=== PATIENT | female | born 1965 | race Caucasian/White ===

== ENCOUNTER 2016-04-03 09:53 | Emergency (ER) | payer BC, OTHER ==
[~2016-04-03] VITALS: Ht 152.4 cm; Wt 54.8 kg
[~2016-04-03 09:53] MED LIST: NAPR1TAB9 PO
[2016-04-03 10:03] VITALS: TEMP 36.7; Ht 152.4 cm; Wt 54.8 kg
[2016-04-03] MEDS ORDERED: DIPHTHERIA/TETANUS/PERTUSSIS 0.5 ML SYR/VIAL IM. ONE (10:30)
[2016-04-03] MEDS ORDERED: RABIES IMMUNE GLOBULIN (HUMAN) 150 INTER.UNIT/ML 2 ML VIAL IM. ONE (11:00)
[2016-04-03] MEDS ORDERED: RABIES VACCINE (IMOVAX) HUMAN DIPL CELL 2.5 INTER.UNIT/ML SYR IM. ONE (11:00)
[2016-04-03] MEDS ORDERED: CLIN300C10 PO (11:02)
[2016-04-03] MEDS ORDERED: DOXY100C PO (11:02)
--- NOTE | 2016-04-03 11:04 | EMERGENCY ROOM VISIT NOTE ---
ED Visit Note First contact with patient: 10:09 CHIEF COMPLAINT: Animal bite HISTORY OF PRESENT ILLNESS: This 50-year-old female patient presents to the emergency department ambulatory after they sustained cat bites to the bilateral lower legs. The patient states she was attempting to catch a feral cat and the cat bit both of her lower legs. The patient complains of dull 1/10 pain at the site of the injury. Pain is worse with movement. Tetanus status is not up to date. REVIEW OF SYSTEMS: A 6 system review of systems was completed with positives and pertinent negatives listed in the HPI. ALLERGIES: Adhesives, penicillins MEDICATIONS: Aleve PMH: No significant past medical history. SOCIAL HISTORY: The patient lives locally with family. PHYSICAL EXAM: Vital Signs reviewed, see Nurse's notes, vital signs stable. GENERAL: This is a 50-year-old female, awake, alert, well appearing, no acute distress. Non toxic in appearance. MUSCULOSKELETAL: There are multiple puncture wounds of bilateral lower extremities. The largest is approximately 1.5 cm on the lateral left lower leg. There is no significant swelling, drainage or active bleeding. No joint space, tendon, or vascular involvement. Distal pulses intact. SKIN: No signs of infection. NEURO: No sensory or motor deficits noted over all dermatomes and myotomes tested. EMERGENCY DEPARTMENT COURSE AND DECISION MAKING: I examined the patient. The Department of Health paperwork was completed. The patient was given an Adacel booster. I did suggest possibly suturing one of the puncture wounds, but she adamantly declined this. I discussed the options of starting the rabies vaccinations versus waiting to see if the patient was able to capture the cat. She initially wanted to wait and attempt to capture the cat, but she later decided that she would rather start the rabies vaccinations today. She was given Imovax 2.5 units intramuscularly and Imogam at a dose of 20 mg/kg. The wounds were cleansed with Betadine and sterile saline and dressed with bacitracin and nonadherent dressings. The patient has a penicillin allergy and will be placed on doxycycline and clindamycin. She was instructed to follow-up with her primary care provider for further evaluation and return if needed for any worsening symptoms. She verbalized understanding of my assessment and treatment plan and was discharged home in good condition. DIAGNOSIS: Cat bite Problem List Surgical Problems: (1) History of hysterectomy Status: Resolved Current/Historical Medications Scheduled Clindamycin Hcl (Clindamycin Hcl), 450 MG PO TID Doxycycline Hyclate (Vibramycin), 100 MG PO BID Scheduled PRN Naproxen (Aleve), 440 MG PO DAILY PRN for Pain Allergies Coded Allergies: Adhesives (Verified Allergy, Unknown, RASH, 04/03/16) Penicillins (Verified Allergy, Unknown, PT HAD CHILD DOES NOT REMEMBER REACTION, 04/03/16) Vital Signs Date Time Temp Pulse Resp B/P Pulse Ox O2 Delivery O2 Flow Rate FiO2 04/03/16 11:57 109 18 126/75 99 Room Air 04/03/16 10:03 36.7 131 20 131/83 99 Room Air Medications Administered Medications (Trade) Dose Ordered Sig/Lily Route Start Time Stop Time Status Last Admin Dose Admin Diphtheria/ Pertussis/Tetanus Vacc (Adacel Inj) 0.5 ml ONCE ONCE IM. 04/03/16 10:30 04/03/16 10:31 DC 04/03/16 10:50 0.5 ML Rabies Immune Globulin (Imogam Rabies Inj) 1,100 interunit ONCE ONCE IM. 04/03/16 11:00 04/03/16 11:01 DC 04/03/16 11:00 1,100 INTERUNIT Rabies Vaccine Human Diploid Cell (Imovax Rabies) 2.5 interunit ONCE ONCE IM. 04/03/16 11:00 04/03/16 11:01 DC 04/03/16 11:00 2.5 INTERUNIT Departure Information Impression Primary Impression: Cat bite Dispostion Home / Self-Care Condition GOOD Prescriptions Clindamycin Hcl (CLINDAMYCIN HCL) 300 Mg Cap 450 MG PO TID for 10 Days, #45 TAB Prov: Joya Fitzgerald PA-C 04/03/16 Doxycycline Hyclate (VIBRAMYCIN) 100 Mg Cap 100 MG PO BID for 10 Days, #20 CAP Prov: Joya Fitzgerald PA-C 04/03/16 Referrals Rogelio Canales M.D. (PCP) Patient Instructions My [facility] Additional Instructions You have received your first rabies vaccination. Today is day 0. You'll need to return on days 3, 7 and 14. The dates to return are: 04/06/16 04/10/16 04/17/16. You were prescribed doxycycline to be taken as prescribed. This is an antibiotic. All antibiotics have the potential to cause diarrhea. Stop this medication and contact a medical provider if you were to develop any significant adverse side effects including: wheezing, shortness of breath, passing out, vomiting, or a diffuse rash. Always take antibiotics as directed and COMPLETE the ENTIRE course regardless of the improvement of your symptoms. You were prescribed clindamycin to be taken as prescribed. This is an antibiotic. All antibiotics have the potential to cause diarrhea. Stop this medication and contact a medical provider if you were to develop any significant adverse side effects including: wheezing, shortness of breath, passing out, vomiting, or a diffuse rash. Always take antibiotics as directed and COMPLETE the ENTIRE course regardless of the improvement of your symptoms. For pain control, you can use the following tlph-fpo-tzmazwr medicines (if >12 yo): - Regular strength (325mg/tab) Tylenol (acetaminophen) 2 tabs every 4-6 hours as needed. Do not exceed 12 tablets in a 24 hour period. Avoid taking more than 4 grams (4000 mg) of Tylenol per day. This includes any other sources of acetaminophen you may take on a regular basis. - Regular strength (200 mg/tab) Advil (ibuprofen) 1-2 tabs every 4-6 hours as needed. Do not exceed a dose of 3200 mg per day. Proper wound care is essential for adequate wound healing and infection prevention. You can shower and clean the wound with soap and water. Do not scour over the wound, pat dry with a towel. Do not submerse the wound (i.e. bathe or dish wash) until the wound has fully healed. You can use an antibiotic ointment with a dressing over the wound for the next 3-4 days. After this time you may leave the wound dry and open to the air. Follow-up with her primary care provider as needed. Return for any signs of worsening infection such as increasing redness, swelling, drainage or fevers/ chills.
[2016-04-03 11:57] VITALS: BP 126/75; PULSE 109; O2SAT 99
[2016-07-03] MEDS ORDERED: DTR5 PO (09:34)
[2016-07-03] MEDS ORDERED: CIPR-255 PO (09:34)
== END 2016-04-03 12:02 | disposition home or self-care (01) ==
LOC: C.EDB 09:54 → C.EDC 12:02
DX: S81.851A Open bite, right lower leg, initial encounter (principal); S81.852A Open bite, left lower leg, initial encounter; W55.01XA Bitten by cat, initial encounter; Z23 Encounter for immunization; Z88.0 Allergy status to penicillin; Z90.710 Acquired absence of both cervix and uterus

== ENCOUNTER 2016-04-06 14:09 | Emergency (ER) | payer BC, OTHER ==
[~2016-04-06] VITALS: Ht 157.5 cm; Wt 54.4 kg
[~2016-04-06 14:09] MED LIST changes: +CLIN300C10 PO; +DOXY100C PO
[2016-04-06 14:11] VITALS: BP 124/83; PULSE 90; TEMP 36.6; O2SAT 99; Ht 157.5 cm; Wt 54.4 kg
[2016-04-06] MEDS ORDERED: RABIES VACCINE (IMOVAX) HUMAN DIPL CELL 2.5 INTER.UNIT/ML SYR IM. ONE (14:16)
--- NOTE | 2016-04-06 14:49 | EMERGENCY ROOM VISIT NOTE ---
History First contact with patient: 14:16 Chief Complaint: RABIES VACCINE REPEAT VISIT Stated Complaint: REPEAT VACCINE History of Present Illness The patient is a 50 year old female who presents to the Emergency Room for her second Imovax injection after being bitten by a feral cat, and presenting to our emergency department for reassessment. The patient denies any adverse reaction to her previous injections. The patient has continued with her oral antibiotic, but reports that she had to see her family doctor yesterday because of itchiness around the wounds. Otherwise she denies fever or other significant reactions. Review of Systems 6 system review was performed and was negative except for pertinent positives and negatives as indicated in history of present illness Past Medical/Surgical History Medical Problems: (1) Acute flank pain (2) Dehydration (3) Gross hematuria (4) No Known Active Medical Problems (5) UTI (urinary tract infection) Surgical Problems: (1) History of hysterectomy Family History Depression Social History Smoking Status: Never Smoker Alcohol Use: none Drug Use: none Marital Status: Housing Status: lives with significant other Occupation Status: employed Current/Historical Medications Scheduled Clindamycin Hcl (Clindamycin Hcl), 450 MG PO TID Doxycycline Hyclate (Vibramycin), 100 MG PO BID Scheduled PRN Naproxen (Aleve), 440 MG PO DAILY PRN for Pain Allergies Coded Allergies: Adhesives (Verified Allergy, Unknown, RASH, 04/03/16) Penicillins (Verified Allergy, Unknown, PT HAD CHILD DOES NOT REMEMBER REACTION, 04/03/16) Physical Exam Vital Signs Date Time Temp Pulse Resp B/P Pulse Ox O2 Delivery O2 Flow Rate FiO2 04/06/16 14:11 36.6 90 18 124/83 99 Room Air Pain Rating (0-10): 0 Physical Exam CONSTITUTIONAL: Healthy and well nourished. Alert and oriented X 3 with positive affect. HEENT: Normocephalic, atraumatic. Pupils equal, round and reactive. MUSCULOSKELETAL: Examination of bilateral lower extremity shows healing wounds with minimal surrounding erythema. No purulence or fluctuance noted. INTEGUMENTARY: No rash or other significant dermatologic conditions noted. NEUROLOGIC: Bilateral lower extremities are sensory intact. Medical Decision & Procedures Medications Administered Medications (Trade) Dose Ordered Sig/Lily Route Start Time Stop Time Status Last Admin Dose Admin Rabies Vaccine Human Diploid Cell (Imovax Rabies) 2.5 interunit STK-MED ONCE IM. 04/06/16 14:16 04/06/16 14:18 DC 04/06/16 14:22 2.5 INTERUNIT ED Course The patient was administered Imovax without adverse reaction. She was instructed to return on day 7, or next Saturday, for her subsequent Imovax injection. Return sooner for any signs of developing leg infection. The patient was happy with plan of care, and denied any discomfort at the time of discharge. Impression Primary Impression: Need for prophylactic vaccination against rabies Additional Impression: Dog bites of bilateral lower extremities Departure Information Dispostion Home / Self-Care Forms HOME CARE DOCUMENTATION FORM, IMPORTANT VISIT INFORMATION Patient Instructions My [facility] Additional Instructions Return Saturday for your next Imovax injection Problem Qualifiers
[2016-07-03] MEDS ORDERED: CIPR-255 PO (09:34)
[2016-07-03] MEDS ORDERED: DTR5 PO (09:34)
== END 2016-04-06 14:32 | disposition home or self-care (01) ==
LOC: C.EDB 14:10 → C.EDD 14:32
DX: Z29.14 Encounter for prophylactic rabies immune globulin (principal); Z20.3 Contact with and (suspected) exposure to rabies; Z90.710 Acquired absence of both cervix and uterus; Z88.0 Allergy status to penicillin

== ENCOUNTER 2016-04-10 13:54 | Emergency (ER) | payer BC ==
[~2016-04-10] VITALS: Ht 157.5 cm; Wt 54.8 kg
[2016-04-10 14:09] VITALS: TEMP 36.5; Ht 157.5 cm; Wt 54.8 kg
[2016-04-10] MEDS ORDERED: RABIES VACCINE (IMOVAX) HUMAN DIPL CELL 2.5 INTER.UNIT/ML SYR IM. ONE (14:15)
--- NOTE | 2016-04-10 14:19 | EMERGENCY ROOM VISIT NOTE ---
ED Visit Note First contact with patient: 14:14 Chief Complaint: Rabies Return Visit History of Present Illness: This patient is a 50-year-old female who presents to the Emergency Department this afternoon for their third Rabies Vaccination Injections. The patient reports that they had no reaction to previous injection. Patient denies the development of any fevers, chills, sweats, or URI symptoms. Medications: Unchanged from previous visit. Allergies: Adhesives, Penicillins PMH: Unchanged from previous visit. SHx: Patient is a 50-year-old female who lives locally. ROS: All pertinent positive and negative review of systems are appropriately documented in the History of Present Illness. Physical Exam: VITAL SIGNS - Vital signs and Nursing Notes were reviewed. GENERAL -50-year-old, well-developed, well-nourished, and in no acute distress. SKIN - Without rashes or lesions. ED Course: Previous ED visit note was reviewed by myself prior to patient evaluation. Patient reports no reaction to the previous injection(s). Patient received 2.5 international units of Imovax intramuscularly. Patient was observed in the Emergency Department for greater than 20 minutes prior to discharge without signs of reaction. Patient was educated on worrisome symptoms for return visit to the Emergency Department. Patient discharged to home with the intent for follow-up in the Emergency Department as scheduled for the remainder of their injections. Impression: Rabies Prophylaxis Discharge Instructions: You were seen in the Emergency Department today for your Rabies Prophylaxis Injection. You should continue to follow the Discharge Instructions outlined for you in your initial Emergency Department visit. For pain or fever control, you can use the following kqwo-noy-psrkwvu medicines (if >12 yo): - Regular strength (325mg/tab) Tylenol (acetaminophen) 2 tabs every 4-6 hours as needed. Do not exceed 12 tablets in a 24 hour period. Avoid taking more than 4 grams (4000 mg) of Tylenol per day. This includes any other sources of acetaminophen you may take on a regular basis. - Regular strength (200 mg/tab) Advil (ibuprofen) 1-2 tabs every 4-6 hours as needed. Do not exceed a dose of 3200 mg per day. Return to the emergency department if your symptoms worsen despite treatment course outlined above. Problem List Surgical Problems: (1) History of hysterectomy Status: Resolved Current/Historical Medications Scheduled Clindamycin Hcl (Clindamycin Hcl), 450 MG PO TID Doxycycline Hyclate (Vibramycin), 100 MG PO BID Allergies Coded Allergies: Adhesives (Verified Allergy, Unknown, RASH, 04/10/16) Penicillins (Verified Allergy, Unknown, PT HAD CHILD DOES NOT REMEMBER REACTION, 04/10/16) Vital Signs Date Time Temp Pulse Resp B/P Pulse Ox O2 Delivery O2 Flow Rate FiO2 04/10/16 14:48 88 16 112/76 96 04/10/16 14:09 36.5 95 18 117/70 97 Room Air Medications Administered Medications (Trade) Dose Ordered Sig/Lily Route Start Time Stop Time Status Last Admin Dose Admin Rabies Vaccine Human Diploid Cell (Imovax Rabies) 2.5 interunit ONCE ONCE IM. 04/10/16 14:15 04/10/16 14:16 DC 04/10/16 14:26 2.5 INTERUNIT Departure Information Impression Primary Impression: Need for prophylactic vaccination against rabies Dispostion Home / Self-Care Condition GOOD Referrals No Doctor, Assigned (PCP) Patient Instructions My [facility] Additional Instructions You were seen in the Emergency Department today for your Rabies Prophylaxis Injection. You should continue to follow the Discharge Instructions outlined for you in your initial Emergency Department visit. For pain or fever control, you can use the following kgpo-hyh-sxbxrxr medicines (if >12 yo): - Regular strength (325mg/tab) Tylenol (acetaminophen) 2 tabs every 4-6 hours as needed. Do not exceed 12 tablets in a 24 hour period. Avoid taking more than 4 grams (4000 mg) of Tylenol per day. This includes any other sources of acetaminophen you may take on a regular basis. - Regular strength (200 mg/tab) Advil (ibuprofen) 1-2 tabs every 4-6 hours as needed. Do not exceed a dose of 3200 mg per day. Return to the emergency department if your symptoms worsen despite treatment course outlined above.
[2016-04-10 14:48] VITALS: BP 112/76; PULSE 88; O2SAT 96
[2016-07-03] MEDS ORDERED: DTR5 PO (09:34)
[2016-07-03] MEDS ORDERED: CIPR-255 PO (09:34)
== END 2016-04-10 14:50 | disposition home or self-care (01) ==
LOC: C.EDB 13:56 → C.EDD 14:50
DX: Z29.14 Encounter for prophylactic rabies immune globulin (principal); Z20.3 Contact with and (suspected) exposure to rabies; Z90.710 Acquired absence of both cervix and uterus

== ENCOUNTER 2016-04-18 14:31 | Emergency (ER) | payer BC ==
[~2016-04-18] VITALS: Ht 162.6 cm; Wt 54.1 kg
[2016-04-18 14:33] VITALS: TEMP 36.4; Ht 162.6 cm; Wt 54.1 kg
--- NOTE | 2016-04-18 14:44 | EMERGENCY ROOM VISIT NOTE ---
ED Visit Note First contact with patient: 14:37 Chief Complaint: final rabies vaccine History of Present Illness: This patient is a 50-year-old female who presents to the Emergency Department for their final Rabies Vaccination Injections. The patient reports that they had no reaction to previous injection. Patient denies the development of any fevers, chills, sweats, or URI symptoms. She was to return yesterday for her final injection but came today because of the poor weather yesterday. Medications: Unchanged from previous visit. Allergies: Adhesives and penicillin PMH: Unchanged from previous visit. SHx: Unchanged from previous visit ROS: All pertinent positive and negative review of systems are appropriately documented in the History of Present Illness. Physical Exam: VITAL SIGNS - Vital signs and Nursing Notes were reviewed. Patient is afebrile , normotensive, non-tachycardic and is saturating well on room air 99%. GENERAL -50-year-old female, well-developed, well-nourished, and in no acute distress. SKIN - other was unremarkable however overlying the lateral aspect of the left lower leg at the region of the cat bite there is evidence of localized cellulitis measuring 1.57 m in diameter with open crater formation. Minimal pus. No surrounding erythema. Slight indurated region just posterior to this. No lymphangitic streaking. ED Course: Previous ED visit note was reviewed by myself prior to patient evaluation. Patient reports now reaction to the previous injection(s). Patient received 2.5 unit of Imovax intramuscularly. Patient was observed in the Emergency Department for greater than 20 minutes prior to discharge without signs of reaction. IV access was established secondary to questionable cellulitic region and concern for potential need for IV antibiotics. A CBC and PRP were obtained. There was concern for retained foreign body therefore radiographs were obtained. No evidence of foreign body such as tooth. I was able to compare patient previous visit with this and was identified that the minor infection has not changed much from previous visit. I do not feel that IV antibiotics are necessary at this time. Patient admitted that she was not compliant with her previous anabiotic salmon skip doses at times and missed and accidentally. Her CBC revealed slight leukocytosis at 11 and chloride was slightly elevated, no other concern. I did elect to provide the patient with Bactrim DS 10 days and Flagyl 500 mg 3 times a day for 10 days as well. This was because she has a penicillin allergy and appeared to a failed on clindamycin and doxycycline. A referral was established for her to go to the [facility] wound clinic. She is to expect a call from this group. She was instructed to call back here if she is here from them by the end of the week. She is to return here sooner if worsening of her symptoms. Patient was educated on worrisome symptoms for return visit to the Emergency Department. Patient discharged to home with the intent for follow-up in the Emergency Department as scheduled for the remainder of their injections. Problem List Surgical Problems: (1) History of hysterectomy Status: Resolved Current/Historical Medications Scheduled Clindamycin HCl (Clindamycin HCl), 900 MG PO TID Doxycycline Hyclate (Vibramycin), 100 MG PO BID Metronidazole (Flagyl), 500 MG PO TID Sulfa/Trimethoprim (Bactrim Ds 800MG/160MG), 1 TAB PO BID Allergies Coded Allergies: Adhesives (Verified Allergy, Unknown, RASH, 04/10/16) Penicillins (Verified Allergy, Unknown, PT HAD CHILD DOES NOT REMEMBER REACTION, 04/10/16) Vital Signs Date Time Temp Pulse Resp B/P Pulse Ox O2 Delivery O2 Flow Rate FiO2 04/18/16 16:21 82 18 114/67 98 04/18/16 14:33 36.4 82 16 122/80 99 Room Air Laboratory Results 04/18/16 15:05 Red Blood Count 4.96, Mean Corpuscular Volume 87.1, Mean Corpuscular Hemoglobin 29.6, Mean Corpuscular Hemoglobin Concent 34.0, Mean Platelet Volume 10.0, Neutrophils (%) (Auto) 61.2, Lymphocytes (%) (Auto) 26.9, Monocytes (%) (Auto) 7.1, Eosinophils (%) (Auto) 4.0, Basophils (%) (Auto) 0.6, Neutrophils # (Auto) 6.73, Lymphocytes # (Auto) 2.96, Monocytes # (Auto) 0.78, Eosinophils # (Auto) 0.44, Basophils # (Auto) 0.07 04/18/16 15:05 Test 04/18/16 15:05 White Blood Count 11.00 K/uL (4.8-10.8) Red Blood Count 4.96 M/uL (4.2-5.4) Hemoglobin 14.7 g/dL (12.0-16.0) Hematocrit 43.2 % (37-47) Mean Corpuscular Volume 87.1 fL (80-100) Mean Corpuscular Hemoglobin 29.6 pg (25-34) Mean Corpuscular Hemoglobin Concent 34.0 g/dl (32-36) Platelet Count 278 K/uL (130-400) Mean Platelet Volume 10.0 fL (7.4-10.4) Neutrophils (%) (Auto) 61.2 % Lymphocytes (%) (Auto) 26.9 % Monocytes (%) (Auto) 7.1 % Eosinophils (%) (Auto) 4.0 % Basophils (%) (Auto) 0.6 % Neutrophils # (Auto) 6.73 K/uL (1.4-6.5) Lymphocytes # (Auto) 2.96 K/uL (1.2-3.4) Monocytes # (Auto) 0.78 K/uL (0.11-0.59) Eosinophils # (Auto) 0.44 K/uL (0-0.5) Basophils # (Auto) 0.07 K/uL (0-0.2) RDW Standard Deviation 40.6 fL (36.4-46.3) RDW Coefficient of Variation 12.7 % (11.5-14.5) Immature Granulocyte % (Auto) 0.2 % Immature Granulocyte # (Auto) 0.02 K/uL (0.00-0.02) Anion Gap 9.0 mmol/L (3-11) Est Creatinine Clear Calc Drug Dose 66.0 ml/min Estimated GFR () 89.4 Estimated GFR (Non- 77.2 BUN/Creatinine Ratio 11.4 (10-20) Calcium Level 8.6 mg/dl (8.5-10.1) Medications Administered Medications (Trade) Dose Ordered Sig/Lily Route Start Time Stop Time Status Last Admin Dose Admin Rabies Vaccine Human Diploid Cell (Imovax Rabies) 2.5 interunit ONCE ONCE IM. 04/18/16 15:00 04/18/16 15:01 DC 04/18/16 14:56 2.5 INTERUNIT Departure Information Impression Primary Impression: Need for prophylactic vaccination against rabies Additional Impression: Cellulitis Dispostion Home / Self-Care Condition GOOD Prescriptions Metronidazole (Flagyl) 500 Mg Tab 500 MG PO TID for 10 Days, #30 TAB Prov: Kevin Hooker PA-C 04/18/16 Sulfa/Trimethoprim (Bactrim Ds 800MG/160MG) Tab 1 TAB PO BID for 10 Days, #20 TAB Prov: Kevin Hooker PA-C 04/18/16 Referrals No Doctor, Assigned (PCP) Patient Instructions My [facility] [address] Additional Instructions You were seen in the emergency department for your last rabies injection. It was found that the bite site does appear to be slightly infected. It is recommended that you comply with the antibiotics. I have ordered Bactrim and Flagyl for you to take. Please take these as prescribed. You should be expecting a phone call from the wound care center. If you do not receive a phone call by the end of the week please call back to the emergency department at [phone], and ask for a pillowcase turner. Please follow-up with your family doctor regarding today's visit. Please return to the emergency department with any worsening signs of infection as we discussed, or any new/concerning symptoms. Problem Qualifiers Additional Impression: Cellulitis Site of cellulitis: extremity Site of cellulitis of extremity: lower extremity Laterality: left Qualified Codes: L03.116 - Cellulitis of left lower limb
[2016-04-18] MEDS ORDERED: RABIES VACCINE (IMOVAX) HUMAN DIPL CELL 2.5 INTER.UNIT/ML SYR IM. ONE (15:00)
[2016-04-18] MEDS ORDERED: DOXY100C PO (15:05)
[2016-04-18] MEDS ORDERED: CLC/300 PO (15:05)
[2016-04-18 15:20] LABS: BASO % 0.6 %; BASO ABS # 0.07 K/uL (0-0.2); COMPLETE YES; HEMATOCRIT 43.2 % (37-47); IG% 0.2 %; LYMPH % 26.9 %; LYMPH ABS # 2.96 K/uL (1.2-3.4); MEAN CELL VOLUME 87.1 fL (80-100); MEAN CORPUSCULAR HEMOGLOBIN 29.6 pg (25-34); MONO % 7.1 %; NEUT % 61.2 %; PLATELET COUNT 278 K/uL (130-400); RED BLOOD COUNT 4.96 M/uL (4.2-5.4)
[2016-04-18 15:36] LABS: BUN/CREATININE RATIO 11.4 (10-20); CALCIUM 8.6 mg/dl (8.5-10.1); CREATININE 0.88 mg/dl (0.60-1.20); POTASSIUM 3.9 mmol/L (3.5-5.1)
--- NOTE | 2016-04-18 15:37 | DIAGNOSTIC IMAGING REPORT ---
LEFT TIBIA AND FIBULA 2 VIEWS CLINICAL HISTORY: Cat bite injury. Infection. FINDINGS: AP and lateral views of the left tibia and fibula are correlated with radiograph of left ankle dated 05/31/2014. The skeletal structures are well mineralized. No fracture is seen. No periostitis or bony erosion is identified. The knee and ankle joints are grossly maintained. Mild soft tissue edema is present along the lateral aspect of the calf. Tiny foci of subcutaneous gas are identified. No radiodense foreign body is seen. IMPRESSION: 1. No acute bony abnormality is seen involving the left tibia or fibula. 2. Subcutaneous soft tissue edema is noted in the lateral calf. 3. No radiodense foreign body is seen. Electronically signed by: Kwaku Veliz M.D. 04/18/2016 3:35 PM Dictated Date/Time: 04/18/2016 3:34 PM
[2016-04-18] MEDS ORDERED: SULF800T23 PO (16:10)
[2016-04-18] MEDS ORDERED: METR-163 PO (16:10)
[2016-04-18 16:21] VITALS: BP 114/67; PULSE 82; O2SAT 98
[2016-07-03] MEDS ORDERED: CIPR-255 PO (09:34)
[2016-07-03] MEDS ORDERED: DTR5 PO (09:34)
== END 2016-04-18 16:19 | disposition home or self-care (01) ==
LOC: C.EDB 14:32 → C.EDD 16:19
DX: Z29.14 Encounter for prophylactic rabies immune globulin (principal); Z20.3 Contact with and (suspected) exposure to rabies; L03.116 Cellulitis of left lower limb; Z90.710 Acquired absence of both cervix and uterus

== ENCOUNTER 2016-06-30 20:28 | Inpatient (IN) | payer BC ==
[~2016-06-30] VITALS: Ht 149.9 cm; Wt 54.4 kg
[2016-06-30] MEDS ORDERED: KETOROLAC TROMETHAMINE 30 MG/ML VIAL IV STA (20:52)
[2016-06-30] MEDS ORDERED: SODIUM CHLORIDE 0.9% 1000ML 1,000 ML IV STA (20:52)
[2016-06-30] MEDS ORDERED: HYDROmorphone INJ 1 MG/ML SYR IV STA (20:52)
[2016-06-30] MEDS ORDERED: CEFTRIAXONE SOD INJ 1 GM ADDVIAL IV STA (20:52)
[2016-06-30] MEDS ORDERED: ONDANSETRON INJ 2 MG/ML 2 ML VIAL IV STA (20:52)
[2016-06-30] MEDS ORDERED: PHENAZOPYRIDINE HCL 200 MG TAB PO STA (20:53)
[2016-06-30] MEDS ORDERED: SULFAMETHOXAZOLE/TRIMETHOPRIM DS 800/160MG TAB PO STA (20:53)
--- NOTE | 2016-06-30 20:58 | EMERGENCY ROOM VISIT NOTE ---
History Report prepared by Cecille: Aleshia Renteria Under the Supervision of: Dr. Alec Brink M.D. First contact with patient: 20:43 Chief Complaint: HEMATURIA Stated Complaint: HX OF BLOOD CLOTS IN URINARY TRACT History of Present Illness The patient is a 50 year old female who presents to the Emergency Room with complaints of persistent hematuria that started about 1 hour prior to arrival. She is accompanied by several family members. She states her urine looks like "pure blood" and admits to a history of UTI's. She also complains of bilateral flank pain and nausea, but she has not vomited. 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 A total of 10 systems reviewed and were otherwise negative. Past Medical & Surgical Medical Problems: (1) Acute flank pain (2) Dehydration (3) Gross hematuria (4) No Known Active Medical Problems (5) UTI (urinary tract infection) Surgical Problems: (1) History of hysterectomy Family History Depression Social History Smoking Status: Never Smoker Alcohol Use: none Drug Use: none Marital Status: Housing Status: lives with significant other Occupation Status: employed Current/Historical Medications No Active Prescriptions or Reported Meds Allergies Coded Allergies: Adhesives (Verified Allergy, Unknown, RASH, 06/30/16) Penicillins (Verified Allergy, Unknown, PT HAD CHILD DOES NOT REMEMBER REACTION, 06/30/16) Physical Exam Vital Signs Date Time Temp Pulse Resp B/P Pulse Ox O2 Delivery O2 Flow Rate FiO2 06/30/16 23:48 36.6 81 16 98/61 97 06/30/16 22:26 89 16 118/74 99 Room Air 06/30/16 21:15 90 16 117/66 94 Room Air 06/30/16 21:02 86 06/30/16 20:30 36.6 112 20 126/85 97 Room Air Physical Exam GENERAL: Patient is an uncomfortable-appearing, well-nourished 50 year old female. She complains of pain in her suprapubic area. HEAD: Normocephalic atraumatic EYES: Ocular movements intact pupils equal and react to light OROPHARYNX mucous membranes are moist no exudates present no erythema or edema present NECK: Supple no nuchal rigidity CHEST: Good equal expansion LUNGS: Clear and equal to auscultation CARDIAC: Normal S1 and S2 ABDOMEN: Soft, suprapubic tenderness, no guarding BACK: No CVA tenderness EXTREMITIES: No pain upon palpation normal muscle strength in all groups no clubbing cyanosis or edema NEURO: Patient is following commands is answering questions appropriately. Alert and oriented x3 Cranial Nerves 2-12 grossly intact Medical Decision & Procedures ER Provider Diagnostic Interpretation: This Ultrasound was reviewed and interpreted by the radiologist and reviewed by myself. RENAL ULTRASOUND IMPRESSION: 1. Mild right collecting system dilatation which is similar to CT of April 13, 2015. 2. No urinary calculi identified. 3. A small amount of mobile material within the bladder. While nonspecific, a small blood clot is favored. A follow-up renal ultrasound in one month is recommended to ensure resolution. Electronically signed by: Martin Diaz M.D. 06/30/2016 10:10 PM Laboratory Results 06/30/16 20:50 Red Blood Count 5.01, Mean Corpuscular Volume 86.0, Mean Corpuscular Hemoglobin 29.9, Mean Corpuscular Hemoglobin Concent 34.8, Mean Platelet Volume 9.8, Neutrophils (%) (Auto) 48.6, Lymphocytes (%) (Auto) 37.2, Monocytes (%) (Auto) 8.8, Eosinophils (%) (Auto) 4.5, Basophils (%) (Auto) 0.8, Neutrophils # (Auto) 4.21, Lymphocytes # (Auto) 3.22, Monocytes # (Auto) 0.76, Eosinophils # (Auto) 0.39, Basophils # (Auto) 0.07 06/30/16 20:50 Test 06/30/16 20:50 06/30/16 21:55 White Blood Count 8.66 K/uL (4.8-10.8) Red Blood Count 5.01 M/uL (4.2-5.4) Hemoglobin 15.0 g/dL (12.0-16.0) Hematocrit 43.1 % (37-47) Mean Corpuscular Volume 86.0 fL (80-100) Mean Corpuscular Hemoglobin 29.9 pg (25-34) Mean Corpuscular Hemoglobin Concent 34.8 g/dl (32-36) Platelet Count 255 K/uL (130-400) Mean Platelet Volume 9.8 fL (7.4-10.4) Neutrophils (%) (Auto) 48.6 % Lymphocytes (%) (Auto) 37.2 % Monocytes (%) (Auto) 8.8 % Eosinophils (%) (Auto) 4.5 % Basophils (%) (Auto) 0.8 % Neutrophils # (Auto) 4.21 K/uL (1.4-6.5) Lymphocytes # (Auto) 3.22 K/uL (1.2-3.4) Monocytes # (Auto) 0.76 K/uL (0.11-0.59) Eosinophils # (Auto) 0.39 K/uL (0-0.5) Basophils # (Auto) 0.07 K/uL (0-0.2) RDW Standard Deviation 39.8 fL (36.4-46.3) RDW Coefficient of Variation 12.6 % (11.5-14.5) Immature Granulocyte % (Auto) 0.1 % Immature Granulocyte # (Auto) 0.01 K/uL (0.00-0.02) Anion Gap 9.0 mmol/L (3-11) Est Creatinine Clear Calc Drug Dose 58.9 ml/min Estimated GFR () 90.7 Estimated GFR (Non- 78.2 BUN/Creatinine Ratio 12.9 (10-20) Calcium Level 9.0 mg/dl (8.5-10.1) Total Bilirubin 0.6 mg/dl (0.2-1) Direct Bilirubin 0.1 mg/dl (0-0.2) Aspartate Amino Transf (AST/SGOT) 13 U/L (15-37) Alanine Aminotransferase (ALT/SGPT) 19 U/L (12-78) Alkaline Phosphatase 61 U/L (45-117) Total Protein 7.4 gm/dl (6.4-8.2) Albumin 4.0 gm/dl (3.4-5.0) Lipase 280 U/L (73-393) Urine Color RED Urine Appearance SLIGHTLY CLOUDY (CLEAR) Urine pH (4.5-7.5) Urine Specific [place] (1.000-1.030) Urine Protein POS (NEG) Urine Glucose (UA) (NEG) Urine Ketones (NEG) Urine Occult Blood (NEG) Urine Nitrite (NEG) Urine Bilirubin (NEG) Urine Urobilinogen (NEG) Urine Leukocyte Esterase (NEG) Urine RBC >30 /hpf (0-4) Urine WBC 10-30 /hpf (0-5) Urine Epithelial Cells >30 /lpf (0-5) Urine Bacteria 1+ (NEG) Labs reviewed by ED physician. Medications Administered Medications (Trade) Dose Ordered Sig/Lily Route Start Time Stop Time Status Last Admin Dose Admin Sodium Chloride (Nss 1000ml) 1,000 ml @ 999 mls/hr Q1H1M STAT IV 06/30/16 20:52 06/30/16 21:52 DC 06/30/16 21:02 999 MLS/HR Ketorolac Tromethamine (Toradol Inj) 30 mg NOW STAT IV 06/30/16 20:52 06/30/16 20:54 DC 06/30/16 21:03 30 MG Hydromorphone HCl (Dilaudid Inj) 1 mg NOW STAT IV 06/30/16 20:52 06/30/16 20:54 DC 06/30/16 21:04 1 MG Ondansetron HCl (Zofran Inj) 4 mg NOW STAT IV 06/30/16 20:52 06/30/16 20:54 DC 06/30/16 21:03 4 MG Ceftriaxone Sodium (Rocephin Inj) 1 gm NOW STAT IV 06/30/16 20:52 06/30/16 20:54 DC 06/30/16 21:04 1 GM Metoclopramide HCl (Reglan Inj) 10 mg NOW STAT IV 06/30/16 21:51 06/30/16 21:53 DC 06/30/16 21:55 10 MG Trimethoprim/ Sulfamethoxazole (Septra Susp) 20 ml NOW STAT PO 06/30/16 21:58 06/30/16 22:00 DC 06/30/16 22:20 20 ML Tamsulosin HCl 0.4 mg 0.4 mg NOW STAT PO 06/30/16 22:31 06/30/16 22:32 DC 06/30/16 22:42 0.4 MG Promethazine HCl/ Sodium Chloride (Phenergan Inj/ Nss 50ml) 51 ml @ 204 mls/hr NOW STAT IV 06/30/16 22:43 06/30/16 22:57 DC 06/30/16 22:52 204 MLS/HR ED Course 2048: Past medical records reviewed. The patient was evaluated in room B2. A complete history and physical examination was performed. 2051: Rocephin 1 gm IV, Zofran 4 mg IV, Dilaudid 1 mg IV, Toradol 30 mg IV, NSS 1000 ml @ 999 mls/hr IV. 2052: Septra Ds 800/160 mg 1 tab PO, Pyridium Tab 200 mg PO. 2150: Reglan 10 mg IV. 2157: Septra Susp 20 ml PO. 2229: I discussed the patients case with Dr. Fernandez [facility] Hospitalist. The patient will be further evaluated. 2230: Flomax 0.4 mg PO. 2234: I reevaluated the patient. She is resting comfortably. I discussed my recommendation that she remain in the hospital for further evaluation and management. She and her family verbalized complete understanding and agreement. Medical Decision This is a 50-year-old female who presents emergency department complaining of blood clot in her bladder. The patient has had this condition twice in the past and noted that she has been admitted to the hospital septic after the original clot started. The patient's symptoms started earlier today. She is afebrile here in the emergency department however she has been complaining of large amount of nausea. An IV was established, patient given normal saline bolus, Toradol, Dilaudid, Zofran. Repeat examination revealed the patient to still be having pain. For this reason she was then given Reglan. Her ultrasound is concerning for a blood clot in her bladder. I attempted to give the patient both Flomax and Bactrim orally however the patient was unable to keep down. For this reason she was given Phenergan. Because the patient is unable to tolerate oral medications I did discuss the case with the hospitalist service who agreed to admit the patient. Patient family were in agreement with the treatment plan. Consults Time Called: 2224 Consulting Physician: Dr. Fernandez [facility] Hospitalist Returned Call: [phone] I discussed the patients case with Dr. Fernandez [facility] Hospitalist. The patient will be further evaluated. Impression Primary Impression: Hematuria Additional Impression: Blood clot in bladder Scribe Attestation The scribe's documentation has been prepared under my direction and personally reviewed by me in its entirety. I confirm that the note above accurately reflects all work, treatment, procedures, and medical decision making performed by me. Departure Information Dispostion Being Evaluated By Hospitalist Prescriptions No Active Prescriptions or Reported Meds Referrals Rogelio Canales M.D. (PCP) Patient Instructions My [facility] Problem Qualifiers
[2016-06-30 21:04] LABS: BASO % 0.8 %; BASO ABS # 0.07 K/uL (0-0.2); COMPLETE YES; EOS % 4.5 %; HEMATOCRIT 43.1 % (37-47); IG% 0.1 %; LYMPH % 37.2 %; LYMPH ABS # 3.22 K/uL (1.2-3.4); MEAN CORPUSCULAR HEMOGLOBIN 29.9 pg (25-34); MEAN CORPUSCULAR HGB CONC 34.8 g/dl (32-36); MEAN PLATELET VOLUME 9.8 fL (7.4-10.4); MONO % 8.8 %; NEUT % 48.6 %; PLATELET COUNT 255 K/uL (130-400); RED BLOOD COUNT 5.01 M/uL (4.2-5.4); WHITE BLOOD COUNT 8.66 K/uL (4.8-10.8)
[2016-06-30 21:19] LABS: BUN/CREATININE RATIO 12.9 (10-20); CREATININE 0.87 mg/dl (0.60-1.20); POTASSIUM 3.5 mmol/L (3.5-5.1)
[2016-06-30] MEDS ORDERED: METOCLOPRAMIDE HCL INJ 5 MG/ML 2 ML VIAL IV STA (21:51)
[2016-06-30] MEDS ORDERED: SULFA/TRIMETH SUSP 800/160MG 20ML UDC PO STA (21:58)
--- NOTE | 2016-06-30 22:12 | DIAGNOSTIC IMAGING REPORT ---
RENAL ULTRASOUND CLINICAL HISTORY: Hematuria. COMPARISON STUDY: Renal ultrasound March 06, [address] of the abdomen and pelvis April 13, 2015. TECHNIQUE: Sonography of the kidneys and the urinary bladder was performed. FINDINGS: The right kidney measures 8.8 x 3.8 x 5.2 cm and the left measures 8.6 x 5 x 5.2 cm. Mild right collecting system dilatation is likely unchanged since exam of April 13, 2015. A 1.7 cm cyst within the upper pole of the right kidney is noted. There is no left hydronephrosis. No calculi are identified by sonography. A small amount of mobile echogenic material within the bladder likely reflects blood clot. IMPRESSION: 1. Mild right collecting system dilatation which is similar to CT of April 13, 2015. 2. No urinary calculi identified. 3. A small amount of mobile material within the bladder. While nonspecific, a small blood clot is favored. A follow-up renal ultrasound in one month is recommended to ensure resolution. Electronically signed by: Martin Diaz M.D. 06/30/2016 10:10 PM Dictated Date/Time: 06/30/2016 10:04 PM
[2016-06-30 22:13] LABS: MANUAL MICROSCOPIC REQUIRED? YES; REVIEW REQ? NO; URINE APPEARANCE SLIGHTLY CLOUDY (CLEAR); URINE COLOR RED
[2016-06-30 22:14] LABS: SULFASALICYLIC ACID POS (NEG)
[2016-06-30 22:16] LABS: URINE BACTERIA 1+ (NEG); URINE RBC >30 /hpf (0-4)
[2016-06-30] MEDS ORDERED: TAMSULOSIN HCL 0.4 MG CAP PO STA (22:31)
[2016-06-30] MEDS ORDERED: PROMETHAZINE HCL INJ 25 MG in SODIUM CHLORIDE 0.9% 50ML 50 ML IV STA (22:43)
[2016-06-30] MEDS ORDERED: METOCLOPRAMIDE HCL INJ 5 MG/ML 2 ML VIAL IV PRN (23:30)
[2016-06-30] MEDS ORDERED: ZOLPIDEM TARTRATE 5 MG TAB PO PRN (23:30)
[2016-06-30] MEDS ORDERED: ONDANSETRON INJ 2 MG/ML 2 ML VIAL IV PRN (23:30)
[2016-06-30] MEDS ORDERED: ACETAMINOPHEN 325 MG TAB PO PRN (23:30)
[2016-06-30] MEDS ORDERED: MAGNESIUM HYDROXIDE SUSP 30 ML UDC PO PRN (23:30)
[2016-06-30] MEDS ORDERED: POLYETHYLENE (MIRALAX) 17 GM PACK PO PRN (23:30)
[2016-06-30] MEDS ORDERED: ALUMINUM/MAGNESIUM/SIMETH (MAALOX MAX) 30 ML UDC PO PRN (23:30)
--- NOTE | 2016-06-30 23:49 | History and Physical ---
History & Physical Date & Time of Service: Jun 30, 2016 at 23:36 Chief Complaint: Hx Of Blood Clots In Urinary Tract Primary Care Physician: Rogelio Canales M.D. History of Present Illness Source: patient 50 y/o F with history of UTIs and resultant hematuria. She has a history of sepsis with prior UTIs. She presents with lizz hematuria, B/L flank pain and nausea without vomiting initially. An attempt was made to treat and discharge from the ER however upon receiving oral antibiotics she proceeded to vomit. She denies fevers and was afebrile in the ER although she had an episode of rigors when I examined her. A bladder ultrasound was done which showed fullness in the R collecting system which was present on previous studies in addition to a probable large blood clot in the bladder. Past Medical/Surgical History Surgical Problems: (1) History of hysterectomy Status: Resolved Family History Depression Social History Smoking Status: Never Smoker Drug Use: none Marital Status: Housing status: lives with family Occupational Status: employed Immunizations History of Influenza Vaccine: Yes Influenza Vaccine Date: Jan 05, 2010 History of Tetanus Vaccine?: Unknown History of Pneumococcal: No History of Hepatitis B Vaccine: Unknown Multi-Drug Resistant Organisms History of MDRO: No Allergies Coded Allergies: Adhesives (Verified Allergy, Unknown, RASH, 06/30/16) Penicillins (Verified Allergy, Unknown, PT HAD CHILD DOES NOT REMEMBER REACTION, 06/30/16) Home Medications No Active Prescriptions or Reported Meds Review of Systems Constitutional: + chills, No fever, No sweats Eyes: No eye pain, No worsening of vision ENT: No hearing loss, No nasal symptoms, No unusual epistaxis Respiratory: No cough, No sputum, No wheezing Cardiovascular: No PND, No chest pain, No orthopnea Abdomen: + nausea, + pain, + vomiting Musculoskeletal: No joint pain, No muscle pain Genitourinary - Female: + dysuria, + hematuria, + urinary frequency Neurologic: No memory loss, No paralysis, No weakness Psychiatric: No depression symptoms Endocrine: No fatigue Hematologic / Lymphatic: + abnormal bleeding/bruising Integumentary: No rash Allergic / Immunologic: No environmental allergies Physical Exam Vital Signs Date Time Temp Pulse Resp B/P Pulse Ox O2 Delivery O2 Flow Rate FiO2 06/30/16 22:26 89 16 118/74 99 Room Air 06/30/16 21:15 90 16 117/66 94 Room Air 06/30/16 21:02 86 06/30/16 20:30 36.6 112 20 126/85 97 Room Air General Appearance: WD/WN, no apparent distress Head: normocephalic, atraumatic Eyes: normal inspection ENT: normal ENT inspection, pharynx normal Neck: supple, no JVD Respiratory/Chest: chest non-tender, lungs clear, normal breath sounds, no respiratory distress, no accessory muscle use Cardiovascular: regular rate, rhythm, no edema, no gallop, no JVD, no murmur, normal peripheral pulses Abdomen/GI: normal bowel sounds, non tender, soft Genitourinary - Female: + pertinent finding (No flank tenderness to palpation) Back: normal inspection, no CVA tenderness, no muscle spasm, normal range of motion Extremities/Musculoskelatal: normal inspection, no calf tenderness, normal capillary refill, no pedal edema, normal range of motion 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, no motor/sensory deficits, alert, normal mood/affect, normal reflexes, oriented x 3 Skin: normal color, warm/dry, no rash Diagnostics Laboratory Results Results Past 24 Hours Test 06/30/16 20:50 06/30/16 21:55 Range/Units White Blood Count 8.66 4.8-10.8 K/uL Red Blood Count 5.01 4.2-5.4 M/uL Hemoglobin 15.0 12.0-16.0 g/dL Hematocrit 43.1 37-47 % Mean Corpuscular Volume 86.0 80-100 fL Mean Corpuscular Hemoglobin 29.9 25-34 pg Mean Corpuscular Hemoglobin Concent 34.8 32-36 g/dl Platelet Count 255 130-400 K/uL Mean Platelet Volume 9.8 7.4-10.4 fL Neutrophils (%) (Auto) 48.6 % Lymphocytes (%) (Auto) 37.2 % Monocytes (%) (Auto) 8.8 % Eosinophils (%) (Auto) 4.5 % Basophils (%) (Auto) 0.8 % Neutrophils # (Auto) 4.21 1.4-6.5 K/uL Lymphocytes # (Auto) 3.22 1.2-3.4 K/uL Monocytes # (Auto) 0.76 0.11-0.59 K/uL Eosinophils # (Auto) 0.39 0-0.5 K/uL Basophils # (Auto) 0.07 0-0.2 K/uL RDW Standard Deviation 39.8 36.4-46.3 fL RDW Coefficient of Variation 12.6 11.5-14.5 % Immature Granulocyte % (Auto) 0.1 % Immature Granulocyte # (Auto) 0.01 0.00-0.02 K/uL Sodium Level 142 136-145 mmol/L Potassium Level 3.5 3.5-5.1 mmol/L Chloride Level 108 98-107 mmol/L Carbon Dioxide Level 25 21-32 mmol/L Anion Gap 9.0 3-11 mmol/L Blood Urea Nitrogen 11 7-18 mg/dl Creatinine 0.87 0.60-1.20 mg/dl Est Creatinine Clear Calc Drug Dose 58.9 ml/min Estimated GFR () 90.7 Estimated GFR (Non- 78.2 BUN/Creatinine Ratio 12.9 10-20 Random Glucose 127 70-99 mg/dl Calcium Level 9.0 8.5-10.1 mg/dl Total Bilirubin 0.6 0.2-1 mg/dl Direct Bilirubin 0.1 0-0.2 mg/dl Aspartate Amino Transf (AST/SGOT) 13 15-37 U/L Alanine Aminotransferase (ALT/SGPT) 19 12-78 U/L Alkaline Phosphatase 61 45-117 U/L Total Protein 7.4 6.4-8.2 gm/dl Albumin 4.0 3.4-5.0 gm/dl Lipase 280 73-393 U/L Urine Color RED Urine Appearance SLIGHTLY CLOUDY CLEAR Urine pH 4.5-7.5 Urine Specific [place] 1.000-1.030 Urine Protein POS NEG Urine Glucose (UA) NEG Urine Ketones NEG Urine Occult Blood NEG Urine Nitrite NEG Urine Bilirubin NEG Urine Urobilinogen NEG Urine Leukocyte Esterase NEG Urine RBC >30 0-4 /hpf Urine WBC 10-30 0-5 /hpf Urine Epithelial Cells >30 0-5 /lpf Urine Bacteria 1+ NEG Diagnostic Radiology US renal 1. Mild right collecting system dilatation which is similar to CT of March. 2. No urinary calculi identified. 3. A small amount of mobile material within the bladder. While nonspecific, a small blood clot is favored. A follow-up renal ultrasound in one month is recommended to ensure resolution. Impression Assessment and Plan 50 y/o F with history of UTIs and resultant hematuria. She has a history of sepsis with prior UTIs. She presents with lizz hematuria, B/L flank pain and nausea without vomiting initially. An attempt was made to treat and discharge from the ER however upon receiving oral antibiotics she proceeded to vomit. She denies fevers and was afebrile in the ER although she had an episode of rigors when I examined her. A bladder ultrasound was done which showed fullness in the R collecting system which was present on previous studies in addition to a probable large blood clot in the bladder. The pt is admitted for IV antibiotics, antiemetics and pain control. Ceftriaxone provided pending culture results. We will insert a Gould and irrigate periodically. Urology will be consulted, SCDs for DVT prophylaxis - Full code Total time for this admit including review of labs, meds, imaging - discussion with pt and ER MD - 35 min Level of Care Med/Surg Resuscitation Status FULL RESUSCITATION VTE Prophylaxis VTE Risk Assessment Done? Y/N: Yes Risk Level: Low Given or contraindicated: SCD's
[2016-07-01] MEDS: HYDROmorphone INJ 1 MG/ML SYR IV PRN ×5 (00:44→20:17)
[2016-07-01 01:23] VITALS: BP 98/61; TEMP 36.6; O2SAT 97; Ht 149.9 cm; Wt 54.4 kg
[2016-07-01] MEDS: NSS + 20MEQ KCL 1000ML 1,000 ML IV SCH ×2 (04:20→11:37)
[2016-07-01 05:58] LABS: HEMATOCRIT 37.9 % (37-47); MEAN CELL VOLUME 87.5 fL (80-100); MEAN CORPUSCULAR HEMOGLOBIN 29.8 pg (25-34); MEAN PLATELET VOLUME 10.1 fL (7.4-10.4); PLATELET COUNT 201 K/uL (130-400); RED BLOOD COUNT 4.33 M/uL (4.2-5.4); WHITE BLOOD COUNT 7.69 K/uL (4.8-10.8)
[2016-07-01 06:40] LABS: BUN/CREATININE RATIO 12.8 (10-20); CALCIUM 7.6 mg/dl (8.5-10.1); CREATININE 0.69 mg/dl (0.60-1.20); MAGNESIUM 2.2 mg/dl (1.8-2.4); POTASSIUM 3.8 mmol/L (3.5-5.1)
[2016-07-01 08:00] VITALS: O2SAT 97
--- NOTE | 2016-07-01 11:41 | Progress Note ---
Subjective Date of Service: Jul 01, 2016. Subjective Pt evaluation today including: conversation w/ patient, conversation w/ family , physical exam, chart review, lab review, review of studies, conversation w/ financial consultant, review of inpatient medication list feeling okay, still has the gross hematuria in the Gould catheter and urinary back, complain above mild bilateral lower abdomen pain, no fever and chills, is on clear liquid diet and IV fluid, no lizz pain Problem List Medical Problems: (1) Blood clot in bladder Status: Acute (2) Cat bite Status: Acute (3) Cellulitis Status: Acute (4) Hematuria Status: Acute (5) Lactic acidosis Status: Acute (6) Leukocytosis Status: Acute (7) Need for prophylactic vaccination against rabies Status: Acute (8) Sepsis Status: Acute Review of Systems Constitutional: + fatigue, No chills, No fever, No problem reported, No sweats , No weakness, No weight loss Eyes: No diplopia, No discharge, No eye pain, No redness, No worsening of vision ENT: No dental problems, No hearing loss, No nasal symptoms, No sore throat, No tinnitus, No trouble swallowing, No unusual epistaxis Respiratory: No cough, No dyspnea at rest, No dyspnea on exertion, No hemoptysis, No shortness of breath, No sputum, No wheezing Cardiac: No PND, No chest pain, No claudication, No edema, No orthopnea, No palpitations Abdomen: + pain, + see HPI, No constipation, No diarrhea, No nausea, No vomiting Musculoskeletal: No calf pain, No joint pain, No muscle pain, No swelling Female : No abnormal vaginal bleeding, No dysuria, No hematuria, No incontinence, No urinary frequency, No vaginal discharge Neurologic: No balance problems, No memory loss, No numbness/tingling, No paralysis, No vertigo, No weakness Psychiatric: No anhedonism, No anxiety, No depression symptoms, No insomnia, No substance abuse Heme: No abnormal bleeding/bruising, No clotting problems, No night sweats, No swollen lymph nodes Endo: No excessive thirst, No excessive urination, No fatigue Skin: No bleeding, No color change, No itch, No new/changing skin lesions, No rash Objective Vital Signs Date Time Temp Pulse Resp B/P Pulse Ox O2 Delivery O2 Flow Rate FiO2 07/01/16 08:00 97 Room Air 07/01/16 01:23 36.6 16 98/61 97 Room Air 06/30/16 23:48 36.6 81 16 98/61 97 06/30/16 22:26 89 16 118/74 99 Room Air 06/30/16 21:15 90 16 117/66 94 Room Air 06/30/16 21:02 86 06/30/16 20:30 36.6 112 20 126/85 97 Room Air Physical Exam General Appearance: WD/WN, no apparent distress, + pertinent finding (ill- looking) Eyes: normal inspection, PERRL, EOMI, sclerae normal ENT: normal ENT inspection, hearing grossly normal, pharynx normal Neck: supple, no adenopathy, thyroid normal, no JVD, no carotid bruits, trachea midline Respiratory/Chest: chest non-tender, lungs clear, normal breath sounds, no respiratory distress, no accessory muscle use Cardiovascular: regular rate, rhythm, no edema, no gallop, no JVD, no murmur Abdomen: normal bowel sounds, non tender, soft, no organomegaly, no pulsatile mass, + pertinent finding (Gould catheter in place) Extremities: normal range of motion, non-tender, normal inspection, no pedal edema, no calf tenderness, normal capillary refill, pelvis stable 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, no motor/sensory deficits, alert, normal mood/affect, oriented x 3 Skin: normal color, warm/dry, no rash Lymphatic: no adenopathy Laboratory Results Last 24 Hours Test 06/30/16 20:50 06/30/16 21:55 07/01/16 05:27 07/01/16 08:25 White Blood Count 8.66 K/uL 7.69 K/uL Red Blood Count 5.01 M/uL 4.33 M/uL Hemoglobin 15.0 g/dL 12.9 g/dL Hematocrit 43.1 % 37.9 % Mean Corpuscular Volume 86.0 fL 87.5 fL Mean Corpuscular Hemoglobin 29.9 pg 29.8 pg Mean Corpuscular Hemoglobin Concent 34.8 g/dl 34.0 g/dl Platelet Count 255 K/uL 201 K/uL Mean Platelet Volume 9.8 fL 10.1 fL Neutrophils (%) (Auto) 48.6 % Lymphocytes (%) (Auto) 37.2 % Monocytes (%) (Auto) 8.8 % Eosinophils (%) (Auto) 4.5 % Basophils (%) (Auto) 0.8 % Neutrophils # (Auto) 4.21 K/uL Lymphocytes # (Auto) 3.22 K/uL Monocytes # (Auto) 0.76 K/uL Eosinophils # (Auto) 0.39 K/uL Basophils # (Auto) 0.07 K/uL RDW Standard Deviation 39.8 fL 41.1 fL RDW Coefficient of Variation 12.6 % 12.7 % Immature Granulocyte % (Auto) 0.1 % Immature Granulocyte # (Auto) 0.01 K/uL Sodium Level 142 mmol/L 143 mmol/L Potassium Level 3.5 mmol/L 3.8 mmol/L Chloride Level 108 mmol/L 112 mmol/L Carbon Dioxide Level 25 mmol/L 23 mmol/L Anion Gap 9.0 mmol/L 8.0 mmol/L Blood Urea Nitrogen 11 mg/dl 9 mg/dl Creatinine 0.87 mg/dl 0.69 mg/dl Est Creatinine Clear Calc Drug Dose 58.9 ml/min 74.3 ml/min Estimated GFR () 90.7 118.5 Estimated GFR (Non- 78.2 102.2 BUN/Creatinine Ratio 12.9 12.8 Random Glucose 127 mg/dl 95 mg/dl Calcium Level 9.0 mg/dl 7.6 mg/dl Total Bilirubin 0.6 mg/dl Direct Bilirubin 0.1 mg/dl Aspartate Amino Transf (AST/SGOT) 13 U/L Alanine Aminotransferase (ALT/SGPT) 19 U/L Alkaline Phosphatase 61 U/L Total Protein 7.4 gm/dl Albumin 4.0 gm/dl Lipase 280 U/L Urine Color RED Urine Appearance SLIGHTLY CLOUDY Urine pH Urine Specific [place] Urine Protein POS Urine Glucose (UA) Urine Ketones Urine Occult Blood Urine Nitrite Urine Bilirubin Urine Urobilinogen Urine Leukocyte Esterase Urine RBC >30 /hpf Urine WBC 10-30 /hpf Urine Epithelial Cells >30 /lpf Urine Bacteria 1+ Magnesium Level 2.2 mg/dl Lactic Acid Level 0.8 mmol/L Assessment and Plan 50 y/o F with history of UTIs and resultant hematuria admitted on 06/30/2016 Gross hematuria and UTI : Stable and improving history of UTIs and resultant hematuria was seen by Dr. Rod before Renal ultrasound was done on 06/30/2016 upon admission: Per report 1. Mild right collecting system dilatation which is similar to CT of April 13, 2015. 2. No urinary calculi identified. 3. A small amount of mobile material within the bladder. While nonspecific, a small blood clot is favored. A follow- up renal ultrasound in one month is recommended to ensure resolution. Continue IV antibiotics, antiemetics and pain control. Continue Gould and irrigate periodically, every 6 hour Urology consulted SCDs for DVT prophylaxis - Full code, no heparin. I because of hematuria GI prophylaxis will be Protonix Continued [facility] stay due to: multiple IV medications needed Discharge planning: home
[2016-07-01 12:26] LABS: PROTHROMBIN TIME (PATIENT) 10.4 SECONDS (9.0-12.0)
[2016-07-01 15:07] VITALS: BP 105/71; PULSE 75; TEMP 37; O2SAT 98
[2016-07-01 16:00] VITALS: O2SAT 97
[2016-07-01 19:54] VITALS: O2SAT 97
[2016-07-01] MEDS: CEFTRIAXONE SOD INJ 1 GM in DEXTROSE 5% ADD-VANTAGE 50ML 50 ML IV SCH (20:12)
[2016-07-01] MEDS: TAMSULOSIN HCL 0.4 MG CAP PO SCH (20:12)
[2016-07-01 23:44] VITALS: BP 104/70; PULSE 84; TEMP 37.3; O2SAT 97
[2016-07-02 00:14] VITALS: O2SAT 97
--- NOTE | 2016-07-02 02:20 | GENITOURINARY CONSULTATION ---
DATE OF CONSULTATION: 07/01/2016 REASON FOR THE CONSULT: Gross hematuria and probable UTI. HISTORY OF PRESENTATION: The patient is a 50-year-old female, who presented to the Emergency Room with sudden onset of gross hematuria and suprapubic pain. She had urinalysis that showed bacteria, 10-30 white cells and greater than 30 red cells. She also had epithelial cells on that urinalysis. She had a normal white blood cell count and a normal creatinine. She denied having any flank pain. There were some clots. A sonogram was performed and there were normal-appearing kidneys without hydronephrosis and what appeared to be a clot in the bladder. Gould catheter was placed, which was indwelling when I saw her today, draining slightly bloody urine. The patient had a repeat CBC overnight and her hematocrit did go down from 43.1 to 37.9, but this may be partially due to hydration. The patient had a similar episode in February and March of 2015, at which time she was also hospitalized with gross hematuria, had a CAT scan, noncontrast, that showed questionable debris in the renal pelvis on one side and a subsequent CAT scan with contrast that was normal. She had a subsequent cystoscopy in March 2015 that was also normal. She denies any history of smoking. There has been no fever during this admission. Unfortunately, it does not appear that a urine culture was performed in the Emergency Room. Blood cultures were performed and are pending. PAST MEDICAL HISTORY: Hysterectomy. SOCIAL HISTORY: She denies any history of smoking or drug use. ALLERGIES: SHE HAS AN ALLERGY TO ADHESIVES AND PENICILLINS. MEDICATIONS: She denies any current active medications at home. REVIEW OF SYSTEMS: Please refer to the admitting doctor's review of systems that was performed yesterday. PHYSICAL EXAMINATION: HEENT: Within normal limits. LUNGS: Clear. HEART: There is no pedal edema. There is no evidence of respiratory distress. ABDOMEN: Benign. She does have some mild suprapubic discomfort. No flank pain to percussion. GENITOURINARY: Deferred. EXTREMITIES: Unremarkable without any evidence of pedal edema or calf tenderness. NEUROLOGIC: She is alert and oriented without obvious focal or sensory deficit. SKIN: Normal without any obvious rash or abnormalities or lesions. LABORATORY DATA: She has a normal white blood cell count, normal creatinine. A sonogram was unremarkable, except for a blood clot in her bladder. A question of some mild right dilatation of the collecting system that was similar to the CT scan that was done in 2016 and no stones. ASSESSMENT: Probable hematuria, secondary to UTI. Unfortunately, we do not have any culture results, because the patient was started on antibiotics in the Emergency Room without having a culture. We will see if she responds appropriately to the antibiotics. We will consider getting a urine cytology and repeating a CAT scan, if she has any abdominal or flank pain. We also would do a cystoscopy when this is resolved. She may need to be on some suppressive medications to prevent bladder infections. Of note, the patient is not taking any blood thinners. She also had a protime that was normal, but did not have a PTT. Platelet count was also within normal range. ASSESSMENT: Probable hematuria associated with bladder infection. If the patient does not respond appropriately to antibiotics, would need to investigate further with possible cystoscopy and/or CAT scan. I suspect this is similar to the patient's episode a year ago. We will order a cytology and consider an outpatient cystoscopy. MADI
[2016-07-02] MEDS: HYDROmorphone INJ 1 MG/ML SYR IV PRN ×4 (04:47→21:02)
[2016-07-02 05:53] LABS: BASO % 0.4 %; BASO ABS # 0.04 K/uL (0-0.2); COMPLETE YES; EOS % 2.7 %; HEMATOCRIT 39.6 % (37-47); IG% 0.2 %; LYMPH % 18.2 %; LYMPH ABS # 1.76 K/uL (1.2-3.4); MEAN CELL VOLUME 87.2 fL (80-100); MEAN CORPUSCULAR HEMOGLOBIN 29.7 pg (25-34); MEAN CORPUSCULAR HGB CONC 34.1 g/dl (32-36); MEAN PLATELET VOLUME 9.9 fL (7.4-10.4); NEUT % 71.5 %; PLATELET COUNT 219 K/uL (130-400); RED BLOOD COUNT 4.54 M/uL (4.2-5.4); WHITE BLOOD COUNT 9.68 K/uL (4.8-10.8)
[2016-07-02 06:15] LABS: CALCIUM 8.6 mg/dl (8.5-10.1); CREATININE 0.79 mg/dl (0.60-1.20); MAGNESIUM 2.1 mg/dl (1.8-2.4); PHOSPHORUS 3.4 mg/dl (2.5-4.9); POTASSIUM 4.4 mmol/L (3.5-5.1)
[2016-07-02 07:20] VITALS: BP 104/69; PULSE 88; TEMP 36.8; O2SAT 96
[2016-07-02] MEDS ORDERED: OXYBUTYNIN CHLORIDE 5 MG TAB PO PRN (08:15)
--- NOTE | 2016-07-02 08:18 | Progress Note ---
Subjective Date of Service: Jul 02, 2016. Subjective Pt evaluation today including: conversation w/ patient, chart review, lab review Voiding: appiah catheter in place (patent, draining morales colored urine) 50 yo female with gross hematuria. ? UTI. Pt reports some bladder pain and feeling weak this morning. Denies n/v, but says she has no appetite. Problem List Medical Problems: (1) Blood clot in bladder Status: Acute (2) Cat bite Status: Acute (3) Cellulitis Status: Acute (4) Hematuria Status: Acute (5) Lactic acidosis Status: Acute (6) Leukocytosis Status: Acute (7) Need for prophylactic vaccination against rabies Status: Acute (8) Sepsis Status: Acute Review of Systems Constitutional: No chills, No fever Respiratory: No shortness of breath Cardiac: No chest pain Abdomen: + pain (suprapubic pain ), No nausea, No vomiting Female : + hematuria Heme: + abnormal bleeding/bruising Objective Vital Signs Date Time Temp Pulse Resp B/P Pulse Ox O2 Delivery O2 Flow Rate FiO2 07/02/16 07:20 36.8 88 20 104/69 96 Room Air 07/02/16 00:14 97 Room Air 07/01/16 23:44 37.3 84 18 104/70 97 Room Air 07/01/16 19:54 97 Room Air 07/01/16 16:00 97 Room Air 07/01/16 15:07 37.0 75 16 105/71 98 Room Air Physical Exam General Appearance: no apparent distress Eyes: normal inspection ENT: hearing grossly normal Neck: no JVD Respiratory/Chest: no respiratory distress, no accessory muscle use Cardiovascular: no JVD Extremities: normal inspection Neurologic/Psychiatric: alert, normal mood/affect, oriented x 3 Skin: normal color Laboratory Results Last 24 Hours Test 07/01/16 08:25 07/01/16 12:11 07/02/16 05:20 Lactic Acid Level 0.8 mmol/L Prothrombin Time 10.4 SECONDS Prothromb Time International Ratio 1.0 White Blood Count 9.68 K/uL Red Blood Count 4.54 M/uL Hemoglobin 13.5 g/dL Hematocrit 39.6 % Mean Corpuscular Volume 87.2 fL Mean Corpuscular Hemoglobin 29.7 pg Mean Corpuscular Hemoglobin Concent 34.1 g/dl Platelet Count 219 K/uL Mean Platelet Volume 9.9 fL Neutrophils (%) (Auto) 71.5 % Lymphocytes (%) (Auto) 18.2 % Monocytes (%) (Auto) 7.0 % Eosinophils (%) (Auto) 2.7 % Basophils (%) (Auto) 0.4 % Neutrophils # (Auto) 6.92 K/uL Lymphocytes # (Auto) 1.76 K/uL Monocytes # (Auto) 0.68 K/uL Eosinophils # (Auto) 0.26 K/uL Basophils # (Auto) 0.04 K/uL RDW Standard Deviation 40.7 fL RDW Coefficient of Variation 12.6 % Immature Granulocyte % (Auto) 0.2 % Immature Granulocyte # (Auto) 0.02 K/uL Sodium Level 137 mmol/L Potassium Level 4.4 mmol/L Chloride Level 104 mmol/L Carbon Dioxide Level 24 mmol/L Anion Gap 9.0 mmol/L Blood Urea Nitrogen 8 mg/dl Creatinine 0.79 mg/dl Est Creatinine Clear Calc Drug Dose 64.9 ml/min Estimated GFR () 101.9 Estimated GFR (Non- 87.9 BUN/Creatinine Ratio 10.0 Random Glucose 110 mg/dl Calcium Level 8.6 mg/dl Phosphorus Level 3.4 mg/dl Magnesium Level 2.1 mg/dl Assessment and Plan A/P: Gross hematuria, ? UTI AFVSS. Persistent gross hematuria this morning. Blood cultures pending. Will send a UC&S as well. Continue IV abx for now. Will send a urine cytology. Will get a CT of the abd/pelvis with and without IV contrast to r/o renal mass or stone. Will also order oxybutynin for bladder spasms. Will continue to follow along with primary service. Continued [facility] stay due to: multiple IV medications needed Discharge planning: home
[2016-07-02] MEDS ORDERED: OPTIRAY 320 IV PRN ×2 (08:30)
--- NOTE | 2016-07-02 11:21 | DIAGNOSTIC IMAGING REPORT ---
ABDOMEN AND PELVIS CT WITH AND WITHOUT IV CONTRAST, UROGRAM PROTOCOL CT DOSE: 531.02 mGy.cm HISTORY: gross hematuria; with and without IV contrast; no oral contrast TECHNIQUE: Multiaxial CT images of the abdomen and pelvis were performed both before and after the use of intravenous contrast to evaluate the urinary system. Maximal intensity projection images were performed at the workstation by the radiologist. COMPARISON STUDY: Abdomen and pelvis CT 04/13/2015. FINDINGS: No renal or ureteral calculi. No hydronephrosis. A few prominent and irregular appearing papilla are not significantly changed. This raises the possibility of papillary necrosis. The distal right ureter are not well opacified. There is a filling defect involving the distal 2.5 cm severe left ureter. Focal scarring within the right kidney remains unchanged. There is a stable 16 mm cyst within the upper pole the right kidney. Small linear filling defects seen within the decompressed bladder favor blood clots. The bladder is suboptimally evaluated due to the Gould catheter. 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 Mild dependent changes seen at the lung bases. Stable hepatic hypodense lesions. These likely represent cysts. Mildly distended gallbladder which has progressed. The spleen, adrenal glands, and pancreas are unremarkable. No retroperitoneal lymphadenopathy. The uterus is surgically absent. Trace pelvic free fluid. No bowel wall thickening or obstruction. Normal appendix. IMPRESSION: 1. No renal or ureteral stones. No hydronephrosis. 2. Filling defect within the distal 2.5 cm of the left ureter. This could represent a blood clot. However, a urothelial malignancy cannot be excluded. 3. Small linear filling defects seen within the bladder. These likely represent blood clots. Direct visualization can be performed for confirmation. 4. A few prominent and abnormal appearing bilateral renal papilla. This favors papillary necrosis. This is similar to the prior study. 5. 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 6. Mildly distended gallbladder. This has progressed. Clinical correlation recommended to exclude right upper quadrant pain. Electronically signed by: Oleksandr Esposito M.D. 07/02/2016 11:19 AM Dictated Date/Time: 07/02/2016 11:06 AM
--- NOTE | 2016-07-02 12:57 | Progress Note ---
Subjective Date of Service: Jul 02, 2016. Subjective Pt evaluation today including: conversation w/ patient Pt is improving, but still with lower pelvic pain. Denies flank pain. Has no further n/v and tolerated PO this AM. Still with morales red urine in appiah. Pt denies fever, SOB, chest pain, n/v/c/d, LE pain or swelling. ROS as noted above, otherwise neg. Problem List Medical Problems: (1) Blood clot in bladder Status: Acute (2) Cat bite Status: Acute (3) Cellulitis Status: Acute (4) Hematuria Status: Acute (5) Lactic acidosis Status: Acute (6) Leukocytosis Status: Acute (7) Need for prophylactic vaccination against rabies Status: Acute (8) Sepsis Status: Acute Objective Vital Signs Date Time Temp Pulse Resp B/P Pulse Ox O2 Delivery O2 Flow Rate FiO2 07/02/16 08:00 Room Air 07/02/16 07:20 36.8 88 20 104/69 96 Room Air 07/02/16 00:14 97 Room Air 07/01/16 23:44 37.3 84 18 104/70 97 Room Air 07/01/16 19:54 97 Room Air 07/01/16 16:00 97 Room Air 07/01/16 15:07 37.0 75 16 105/71 98 Room Air Physical Exam General Appearance: WD/WN, no apparent distress Respiratory/Chest: normal breath sounds, no respiratory distress Cardiovascular: regular rate, rhythm, no edema Abdomen: soft, + tenderness (along pelvis/lower abd) Extremities: non-tender Neurologic/Psychiatric: alert, oriented x 3 Skin: normal color, warm/dry Laboratory Results Last 24 Hours Test 07/02/16 05:20 White Blood Count 9.68 K/uL Red Blood Count 4.54 M/uL Hemoglobin 13.5 g/dL Hematocrit 39.6 % Mean Corpuscular Volume 87.2 fL Mean Corpuscular Hemoglobin 29.7 pg Mean Corpuscular Hemoglobin Concent 34.1 g/dl Platelet Count 219 K/uL Mean Platelet Volume 9.9 fL Neutrophils (%) (Auto) 71.5 % Lymphocytes (%) (Auto) 18.2 % Monocytes (%) (Auto) 7.0 % Eosinophils (%) (Auto) 2.7 % Basophils (%) (Auto) 0.4 % Neutrophils # (Auto) 6.92 K/uL Lymphocytes # (Auto) 1.76 K/uL Monocytes # (Auto) 0.68 K/uL Eosinophils # (Auto) 0.26 K/uL Basophils # (Auto) 0.04 K/uL RDW Standard Deviation 40.7 fL RDW Coefficient of Variation 12.6 % Immature Granulocyte % (Auto) 0.2 % Immature Granulocyte # (Auto) 0.02 K/uL Sodium Level 137 mmol/L Potassium Level 4.4 mmol/L Chloride Level 104 mmol/L Carbon Dioxide Level 24 mmol/L Anion Gap 9.0 mmol/L Blood Urea Nitrogen 8 mg/dl Creatinine 0.79 mg/dl Est Creatinine Clear Calc Drug Dose 64.9 ml/min Estimated GFR () 101.9 Estimated GFR (Non- 87.9 BUN/Creatinine Ratio 10.0 Random Glucose 110 mg/dl Calcium Level 8.6 mg/dl Phosphorus Level 3.4 mg/dl Magnesium Level 2.1 mg/dl Assessment and Plan 50 y/o F with history of UTIs and resultant hematuria admitted on 06/30/2016 Gross hematuria and UTI : Stable and improving. This is pt's second hospitalization for same with last being 02/2015 history of UTIs and resultant hematuria was seen by Dr. Hunter on prior admission Renal ultrasound on admission 06/30/2016 noting small clot follow-up renal ultrasound in one month is recommended to ensure resolution. CTAP with L ureter with filling defect and question of clot, cannot r/o malignancy Urology is following and planning for further IV abx with appiah irrigation SCDs for DVT prophylaxis given hematuria GI prophylaxis will be Protonix Continued [facility] stay due to: multiple IV medications needed Discharge planning: home
[2016-07-02 15:12] VITALS: BP_SYST 93; BP_SYST 94; BP_DIAS 61; BP_DIAS 63; PULSE 81; TEMP 37; O2SAT 97
[2016-07-02 15:15] VITALS: BP 151/83; PULSE 90; TEMP 36.3; O2SAT 100
[2016-07-02 15:45] VITALS: O2SAT 100
[2016-07-02] MEDS: CEFTRIAXONE SOD INJ 1 GM in DEXTROSE 5% ADD-VANTAGE 50ML 50 ML IV SCH (19:47)
[2016-07-02] MEDS: TAMSULOSIN HCL 0.4 MG CAP PO SCH (19:47)
[2016-07-02] MEDS: SODIUM CHLORIDE 0.9% 1000ML 1,000 ML IV SCH (21:23)
[2016-07-03 00:48] VITALS: BP 94/61; PULSE 86; TEMP 37; O2SAT 93
[2016-07-03] MEDS: SODIUM CHLORIDE 0.9% 1000ML 1,000 ML IV SCH (04:55)
[2016-07-03 07:23] VITALS: BP 99/65; PULSE 98; TEMP 36.4; O2SAT 95
--- NOTE | 2016-07-03 09:29 | Progress Note ---
Subjective Date of Service: Jul 03, 2016. Subjective Pt evaluation today including: conversation w/ patient, chart review, lab review Voiding: appiah catheter in place (patent, draining lachelle colored urine) 50 yo female with gross hematuria. Bladder pain has improved this morning. H&H stable. Urine lachelle colored this morning. CT scan yesterday showing ? filling defect of the left ureter as well as suspected papillary necrosis. No ureteral stones, renal masses, or hydro noted. Problem List Medical Problems: (1) Blood clot in bladder Status: Acute (2) Cat bite Status: Acute (3) Cellulitis Status: Acute (4) Hematuria Status: Acute (5) Lactic acidosis Status: Acute (6) Leukocytosis Status: Acute (7) Need for prophylactic vaccination against rabies Status: Acute (8) Sepsis Status: Acute Review of Systems Constitutional: No chills, No fever Respiratory: No shortness of breath Cardiac: No chest pain Abdomen: No nausea, No pain, No vomiting Female : + hematuria Objective Vital Signs Date Time Temp Pulse Resp B/P Pulse Ox O2 Delivery O2 Flow Rate FiO2 07/03/16 07:23 36.4 98 20 99/65 95 Room Air 07/03/16 00:48 37.0 86 18 94/61 93 Room Air 07/03/16 00:01 Room Air 07/02/16 15:45 100 Room Air 07/02/16 15:15 90 07/02/16 15:12 37.0 81 18 93/63 97 Room Air 94/61 Physical Exam General Appearance: no apparent distress Eyes: normal inspection ENT: hearing grossly normal Neck: no JVD Respiratory/Chest: no respiratory distress, no accessory muscle use Cardiovascular: no JVD Extremities: normal inspection Neurologic/Psychiatric: alert, normal mood/affect, oriented x 3 Skin: normal color Assessment and Plan A/P: Gross hematuria, ? UTI AFVSS. Hematuria improved. Blood cultures negative. UC&S pending. Urine cytology pending. CT showing left ureteral filling defect. Will plan for outpatient cysto and possible repeat imaging for further evaluation. Suspect blood product at this time. No need for urgent surgical intervention as her pain has improved. Will d/c appiah catheter and attempt a TOV this AM. Pt OK for d/c home from perspective. Recommend d/c home on 3-5 days of Cipro. Will arrange for outpatient f/u with cysto with Dr. Miner. Recall PRN issues. Continued [facility] stay due to: multiple IV medications needed Discharge planning: home
[2016-07-03] MEDS ORDERED: DTR5 PO (09:34)
[2016-07-03] MEDS ORDERED: CIPR-255 PO (09:34)
--- NOTE | 2016-07-03 09:36 | Discharge Instructions ---
Discharge Instructions Date of Service Jul 03, 2016. Admission Reason for Admission: Gross Hematuria, Uti Discharge Discharge Diagnosis / Problem: Gross hematuria, UTI Discharge Goals Goal(s): Decrease discomfort, Improve function, Increase independence Activity Recommendations Activity Limitations: resume your previous activity . Instructions / Follow-Up Instructions / Follow-Up You will need to follow-up with urology in the next 7-10 days. You are being given a script for oxybutynin, which is a medication that can help with bladder spasms. You do not need to fill this medication if you are no longer having any lower abdominal pain. Current Hospital Diet Patient's current hospital diet: Full Liquid Diet Discharge Diet Recommended Diet: Regular Diet Pending Studies Studies pending at discharge: yes List of pending studies: Urine culture Medical Emergencies . Who to Call and When: Medical Emergencies: If at any time you feel your situation is an emergency, please call 911 immediately. . Non-Emergent Contact Non-Emergency issues call your: Primary Care Provider, Urologist . . "Provider Documentation" section prepared by Nara Mullins. VTE Core Measure Inpt VTE Proph given/why not?: SCD's
--- NOTE | 2016-07-03 09:38 | Discharge Summary ---
Discharge Summary Date of Service Jul 03, 2016. Discharge Summary Admission Date: Jun 30, 2016 at 23:26 Discharge Date: Jul 03, 2016 Discharge Disposition: Home Principal Diagnosis: Gross hematuria, UTI Problems/Secondary Diagnoses: Esophageal dysmotility, requiring frequent stretching Immunizations: Have You Had Influenza Vaccine: Yes Influenza Vaccine Date: Jan 05, 2010 History of Tetanus Vaccine?: Unknown History of Pneumococcal: No History of Hepatitis B Vaccine: Unknown Consultations: Dr. Miner Medication Reconciliation New Medications: Ciprofloxacin Hcl (Cipro) 500 Mg Tab 500 MG PO BID for 5 Days, #10 TAB Oxybutynin Chloride (Oxybutynin Chloride) 5 Mg Tab 5 MG PO BID PRN for BLADDER SPASMS, #10 TAB Discharge Exam Pt is much improved today. She no longer has any pelvic pain. Also no longer passing morales red urine. Tolerating PO well, although not eating much due to being on a liquid diet. She also states she is due to have her esophagus stretched. Pt denies fever, SOB, chest pain, abd pain, n/v/c/d, LE pain or swelling. ROS as noted above, otherwise neg. Physical Exam: General Appearance: WD/WN, no apparent distress Respiratory/Chest: normal breath sounds, no respiratory distress Cardiovascular: regular rate, rhythm, no edema Abdomen / GI: non tender, soft Extremities: no calf tenderness, no pedal edema Neurologic/Psychiatric: alert, oriented x 3 Skin: normal color, warm/dry Hospital Course 50 y/o F with history of UTIs and resultant hematuria with pelvic and flank pain admitted on 06/30/2016 Gross hematuria and UTI : This is pt's second hospitalization for same with last being 02/2015 history of UTIs and resultant hematuria was seen by Dr. Hunter on prior admission Renal ultrasound on admission 06/30/2016 noting small clot CTAP with L ureter with filling defect and question of clot, but cannot r/o malignancy Urology requested further IV abx and monitoring Pain and hematuria have resolved this AM, urology is planning for cystoscopy as outpt given resolution Finish course of cipro as outpt Urine cx pending follow-up renal ultrasound in one month is recommended to ensure resolution. Total Time Spent: Greater than 30 minutes This includes examination of the patient, discharge planning, medication reconciliation, and communication with other providers. Discharge Instructions Please refer to the electronic Patient Visit Report (Discharge Instructions) for additional information. Follow-Up Urology in 7-10 days Additional Copies To Rogelio Canales M.D.
[2016-07-03 12:18] VITALS: BP 99/65; PULSE 98; TEMP 36.4; O2SAT 95
[2016-12-24] MEDS ORDERED: PRM625 PO (08:44)
[2016-12-25] MEDS ORDERED: SUCR1TAB29 PO (09:36)
[2016-12-25] MEDS ORDERED: PRLSR20 PO (09:36)
== END 2016-07-03 12:53 | disposition home or self-care (01) | DRG 690 ==
LOC: ENRESERVTM → ENRESERVDT → C.EDB 20:29 → C.MS2W 23:26
PROVIDERS: ADMIT Internal Medicine; ATTEND Family Medicine
DX: N39.0 Urinary tract infection, site not specified (principal); R31.0 Gross hematuria; R93.41 Abnormal radiologic findings on diagnostic imaging of renal pelvis, ureter, or bladder; K22.4 Dyskinesia of esophagus; N32.89 Other specified disorders of bladder; Z87.440 Personal history of urinary (tract) infections; Z86.19 Personal history of other infectious and parasitic diseases

== ENCOUNTER → 2016-07-13 | Outpatient (CLI) | payer BC ==
[~2016-07-13] MED LIST changes: +CIPR-255 PO; -CLIN300C10 PO; -DOXY100C PO; +DTR5 PO; -NAPR1TAB9 PO; +PRLSR20 PO; +PRM625 PO; +SUCR1TAB29 PO
== END | disposition home or self-care (01) ==
LOC: C.LABSPEC 15:41
PROVIDERS: ATTEND Urology
DX: N39.0 Urinary tract infection, site not specified (principal); R31.0 Gross hematuria

== ENCOUNTER → 2016-08-10 | Outpatient (CLI) | payer BC ==
[~2016-08-10] MED LIST changes: +OPTIRAY 300 IV PRN
--- NOTE | 2016-08-10 14:34 | DIAGNOSTIC IMAGING REPORT ---
IVP W/OR W/O TOMOGRAMS CLINICAL HISTORY: R10.9 Acute flank painR31.0 Gross [id number] Renal cyst, rig flank pain. Hematuria. COMPARISON STUDY: CT dated 07/02/2016 FINDINGS: Survey examination of the abdomen shows renal and psoas shadows to be unremarkable. Study is performed following the administration of 100 cc nonionic contrast. Tomographic sections are negative for hydronephrosis. There is duplication of the upper right renal collecting system. The 2 ureters joining at the level of the soft tissue pelvic region. Left renal collecting system is unremarkable. Left ureters normal in course and caliber. No filling defect is appreciated. Bladder fills well and is negative for filling defect. Post void shows no significant residual. IMPRESSION: 1. Normal upper left renal collecting system. 2. Duplicated upper right renal collecting system. 3. Otherwise negative study with no evidence for filling defect or obstructive change 4. No significant post void residual Electronically signed by: Brandin Dimas M.D. 08/10/2016 2:28 PM Dictated Date/Time: 08/10/2016 2:26 PM
== END ==
LOC: C.RAD 12:38
PROVIDERS: ATTEND Urology
DX: R10.9 Unspecified abdominal pain (principal); R31.0 Gross hematuria; N28.1 Cyst of kidney, acquired

== ENCOUNTER → 2016-11-14 | Outpatient (CLI) | payer BC ==
[~2016-11-14] MED LIST changes: -OPTIRAY 300 IV PRN
--- NOTE | 2016-11-14 16:28 | MAMMOGRAPHY REPORT ---
BILATERAL DIGITAL SCREENING MAMMOGRAM TOMOSYNTHESIS WITH CAD: 11/14/2016 TECHNIQUE: Breast tomosynthesis in addition to standard 2D mammography was performed. Current study was also evaluated with a Computer Aided Detection (CAD) system. COMPARISON: Comparison is made to exams dated: 10/18/2015 mammogram, 07/30/2014 mammogram, 03/02/2013 u ltrasound biopsy, 02/27/2013 ultrasound, 02/27/2013 mammogram, and 02/23/2013 mammogram - [facility]. BREAST COMPOSITION: There are scattered areas of fibroglandular density in both breasts. FINDINGS: No suspicious masses, calcifications, or areas of architectural distortion are noted in ei ther breast. There has been no significant interval change compared to prior exams. Bilateral asymme tries are stable compared to prior exams. A biopsy marker clip is again noted within the right super ior breast. IMPRESSION: ACR BI-RADS CATEGORY 2: BENIGN There is no mammographic evidence of malignancy. A 1 year screening mammogram is recommended. The pa tient will receive written notification of the results. Approximately 10% of breast cancers are not detected with mammography. A negative mammographic report should not delay biopsy if a clinically suggestive mass is present. Becky Cervantes M.D. /:11/14/2016 15:29:03 Machine Puller: Maggi JOHNSTON)(M), [facility] letter sent: Normal 1/2 BI-RADS Code: ACR BI-RADS Category 2: Benign
== END | disposition home or self-care (01) ==
LOC: C.MAMM 14:35
PROVIDERS: ATTEND Internal Medicine
DX: Z12.31 Encounter for screening mammogram for malignant neoplasm of breast (principal)

== ENCOUNTER 2016-12-24 20:33 | Inpatient (IN) | payer BC ==
[~2016-12-24] VITALS: Ht 149.9 cm; Wt 54.3 kg
[~2016-12-24 20:33] MED LIST changes: -LIDOCAINE HCL 2% 2 ML VIAL (20MG/ML) ONE; -MIDAZOLAM HCL 1 MG/ML 2ML VIAL ONE; -PRLSR20 PO; -PROPOFOL IV EMULSION 10 MG/ML 20 ML VIAL IV ONE; -SODIUM CHLORIDE 0.9% 500ML 500 ML IV ONE; -SUCR1TAB29 PO
--- NOTE | 2016-12-24 21:52 | EMERGENCY ROOM VISIT NOTE ---
History Report prepared by Nataliiaibrosangela: Aleshia Renteria Under the Supervision of: Dr. Anselmo Martinez M.D. First contact with patient: 21:19 Chief Complaint: NAUSEA Stated Complaint: COLD CANT GET WARM,FEELS LIKE HAS TO THROW UP,FARRIS Nursing Triage Summary: nausea and chills since throat stretching today. History of Present Illness The patient is a 51 year old female who presents to the Emergency Room with complaints of persistent nausea for the past several hours. She had an endoscopy this afternoon at [address] Jurado of [facility], where she states she had her throat dilated due to a hereditary issue. She vomited twice this afternoon and also complains of a headache and the chills. The patients family called Dr. Jurado's office this evening and they were referred here to the ED for evaluation by his nursing staff. She states her throat currently feels "fine". She notes she tried eating mashed potatoes this evening, but did not have much of an appetite. The patient denies LOC, fevers, diaphoresis, visual changes, neck pain, chest pain, breathing difficulties, abdominal pain, back pain, melena, hematochezia, urinary symptoms, numbness, weakness, lymphadenopathy, rash, or other complaints. Source of History: patient Onset: past several hours Position: other (global) Timing: other (persistent) Associated Symptoms: + chills, + headache, + vomiting Review of Systems See HPI for pertinent positives and negatives. A total of ten systems were reviewed and were otherwise negative. Past Medical & Surgical Medical Problems: (1) Acute flank pain (2) Dehydration (3) Gross hematuria (4) No Known Active Medical Problems (5) UTI (urinary tract infection) Surgical Problems: (1) History of hysterectomy Family History Depression Social History Smoking Status: Never Smoker Alcohol Use: none Drug Use: none Marital Status: Housing Status: lives with significant other Occupation Status: employed Current/Historical Medications No Active Prescriptions or Reported Meds Allergies Coded Allergies: Adhesives (Verified Allergy, Unknown, RASH, 12/24/16) Fish (Verified Allergy, Unknown, GI SYMPTOMS, 12/24/16) Penicillins (Verified Allergy, Unknown, PT HAD CHILD DOES NOT REMEMBER REACTION, 12/24/16) Physical Exam Vital Signs Date Time Temp Pulse Resp B/P (MAP) Pulse Ox O2 Delivery O2 Flow Rate FiO2 12/24/16 22:30 118 23 121/79 94 Room Air 12/24/16 22:05 94 12/24/16 21:55 101 19 109/69 95 Room Air 12/24/16 20:38 37.1 109 20 134/91 97 Room Air Physical Exam GENERAL: Awake, alert, uncomfortable-appearing, in no distress HENT: Normocephalic, atraumatic. Oropharynx unremarkable. EYES: Normal conjunctiva. Sclera non-icteric. NECK: Supple. No nuchal rigidity. FROM. No JVD. RESPIRATORY: Clear to auscultation. CARDIAC: Tachycardic heart rate, normal rhythm. Extremities warm and well perfused. Pulses equal. ABDOMEN: Soft, non-distended. No tenderness to palpation. No rebound or guarding. No masses. RECTAL: Deferred. MUSCULOSKELETAL: Chest examination reveals no tenderness. The back is symmetrical on inspection without obvious abnormality. There is no CVA tenderness to palpation. No joint edema. LOWER EXTREMITIES: Calves are equal size bilaterally and non-tender. No edema. No discoloration. NEURO: Normal sensorium. No sensory or motor deficits noted. SKIN: No rash or jaundice noted. Medical Decision & Procedures ER Provider Diagnostic Interpretation: Radiology results as stated below per my review and radiologist interpretation: CHEST CT WITH CONTRAST CT DOSE: 268.91 mGy.cm HISTORY: chills, mid chest pain, s/p esophageal dilation today. Give oral con. TECHNIQUE: Multiaxial CT images of the chest were performed following the intravenous administration of contrast. A dose lowering technique was utilized adhering to the principles of ALARA. COMPARISON: Abdomen and pelvis CT 07/02/2016. FINDINGS: The central airways are patent. No pleural effusions. No pneumothorax. No pneumomediastinum. Tree-in-bud and patchy groundglass airspace opacities seen within the left lung base. No fractures within the visualized osseous structures. No mediastinal or hilar lymphadenopathy. The heart is normal in size. The adrenal glands and spleen are unremarkable. Stable hypodense lesions within the right kidney and liver. Normal caliber thoracic aorta. The central pulmonary arteries are patent. There is contrast within the esophagus. No extraluminal contrast to suggest a leak. IMPRESSION: 1. No evidence for esophageal perforation. 2. Tree-in-bud and patchy groundglass airspace opacities within the left lung base. This favors a pneumonia likely due to aspiration. Electronically signed by: Oleksandr Esposito M.D. 12/24/2016 11:10 PM Laboratory Results 12/24/16 21:51 Red Blood Count 4.95, Mean Corpuscular Volume 86.1, Mean Corpuscular Hemoglobin 29.1, Mean Corpuscular Hemoglobin Concent 33.8, Mean Platelet Volume 9.6, Neutrophils (%) (Auto) 87.5, Lymphocytes (%) (Auto) 5.7, Monocytes (%) (Auto) 5.7, Eosinophils (%) (Auto) 0.7, Basophils (%) (Auto) 0.2, Neutrophils # (Auto) 14.07, Lymphocytes # (Auto) 0.91, Monocytes # (Auto) 0.92, Eosinophils # (Auto) 0.12, Basophils # (Auto) 0.04 12/24/16 21:51 Test 12/24/16 21:51 12/24/16 23:10 White Blood Count 16.10 K/uL (4.8-10.8) Red Blood Count 4.95 M/uL (4.2-5.4) Hemoglobin 14.4 g/dL (12.0-16.0) Hematocrit 42.6 % (37-47) Mean Corpuscular Volume 86.1 fL (80-100) Mean Corpuscular Hemoglobin 29.1 pg (25-34) Mean Corpuscular Hemoglobin Concent 33.8 g/dl (32-36) Platelet Count 249 K/uL (130-400) Mean Platelet Volume 9.6 fL (7.4-10.4) Neutrophils (%) (Auto) 87.5 % Lymphocytes (%) (Auto) 5.7 % Monocytes (%) (Auto) 5.7 % Eosinophils (%) (Auto) 0.7 % Basophils (%) (Auto) 0.2 % Neutrophils # (Auto) 14.07 K/uL (1.4-6.5) Lymphocytes # (Auto) 0.91 K/uL (1.2-3.4) Monocytes # (Auto) 0.92 K/uL (0.11-0.59) Eosinophils # (Auto) 0.12 K/uL (0-0.5) Basophils # (Auto) 0.04 K/uL (0-0.2) RDW Standard Deviation 40.1 fL (36.4-46.3) RDW Coefficient of Variation 12.6 % (11.5-14.5) Immature Granulocyte % (Auto) 0.2 % Immature Granulocyte # (Auto) 0.04 K/uL (0.00-0.02) Anion Gap 6.0 mmol/L (3-11) Est Creatinine Clear Calc Drug Dose 59.7 ml/min Estimated GFR () 98.2 Estimated GFR (Non- 84.7 BUN/Creatinine Ratio 14.2 (10-20) Calcium Level 8.7 mg/dl (8.5-10.1) Total Bilirubin 1.0 mg/dl (0.2-1) Direct Bilirubin 0.2 mg/dl (0-0.2) Aspartate Amino Transf (AST/SGOT) 10 U/L (15-37) Alanine Aminotransferase (ALT/SGPT) 13 U/L (12-78) Alkaline Phosphatase 58 U/L (45-117) Total Protein 7.3 gm/dl (6.4-8.2) Albumin 3.8 gm/dl (3.4-5.0) Lipase 138 U/L (73-393) Urine Color YELLOW Urine Appearance CLEAR (CLEAR) Urine pH 8.0 (4.5-7.5) Urine Specific [place] 1.033 (1.000-1.030) Urine Protein NEG (NEG) Urine Glucose (UA) NEG (NEG) Urine Ketones NEG (NEG) Urine Occult Blood TRACE (NEG) Urine Nitrite NEG (NEG) Urine Bilirubin NEG (NEG) Urine Urobilinogen NEG (NEG) Urine Leukocyte Esterase TRACE (NEG) Urine WBC (Auto) 1-5 /hpf (0-5) Urine RBC (Auto) 0-4 /hpf (0-4) Urine Hyaline Casts (Auto) 1-5 /lpf (0-5) Urine Epithelial Cells (Auto) 10-20 /lpf (0-5) Urine Bacteria (Auto) 4+ (NEG) Laboratory results reviewed by me Medications Administered Medications (Trade) Dose Ordered Sig/Lily Route Start Time Stop Time Status Last Admin Dose Admin Ceftriaxone Sodium (Rocephin Inj) 1 gm NOW STAT IV 12/25/16 00:18 12/25/16 00:19 DC 12/25/16 01:00 1 GM Metronidazole (Flagyl / Nss) 500 mg NOW STAT IV 12/25/16 00:18 12/25/16 00:19 DC 12/25/16 01:43 500 MG Sodium Chloride 1,000 ml @ 125 mls/hr Q8H STAT IV 12/25/16 00:27 12/25/16 01:57 DC 12/25/16 01:02 125 MLS/HR Sodium Chloride 500 ml @ 999 mls/hr Q31M STAT IV 12/25/16 00:27 12/25/16 00:57 DC 12/25/16 00:27 999 MLS/HR ED Course 7: The patient was evaluated in room B11A. A complete history and physical exam was performed. 2326: I reevaluated the patient. She is feeling better and resting comfortably. 0015: I discussed the patients case with Dr. Hung [facility]. She recommends the patient remain in the hospital for further evaluation and management. 0018: Flagyl 500 mg IV, Rocephin 1 gm IV. 0021: I reevaluated the patient. She is resting comfortably. I discussed my conversation with GI and recommendation she remain in the hospital for further evaluation and management and she verbalized complete understanding and agreement. 0027: NSS 500 ml @ 999 mls/hr IV, NSS 1000 ml @ 125 mls/hr IV, Tylenol 1000 mg PO. 0030: I discussed the patients case with Dr. Fernandez, [facility] Hospitalist. The patient will be further evaluated. Medical Decision Triage Nursing notes reviewed. The patient's presentation and history were concerning for chest pain and chills post esophageal dilatation. Etiologies such as esophageal rupture, bacteremia, viral syndrome, cardiac sources, aspiration, pneumonia, pneumothorax, musculoskeletal, infections, gastrointestinal, as well as others were entertained. The patient was evaluated. She had chills. IV was established. Blood cultures were done. Patient had CT imaging performed. The patient has a leukocytosis. Chemistries otherwise were unremarkable. She had a CT performed with IV and oral contrast. There is an esophageal perforation. It appears the patient has an aspiration pneumonia developing. She had chills and rigors. She was hydrated. The patient was given Tylenol. I discussed the case with gastroenterology who recommended IV antibiotics. The patient was placed on Rocephin and Flagyl given her penicillin allergy. She had a consultation placed with internal medicine. The patient was evaluated for further management. Medication Reconcilliation Current Medication List: was personally reviewed by me Blood Pressure Screening Patient's blood pressure: Normal blood pressure Blood pressure disposition: Did not require urgent referral Consults Time Called: [phone] Consulting Physician: [facility] Returned Call: 0015 I discussed the patients case with [facility]. She recommends the patient remain in the hospital for further evaluation and management. Additional Consults: Time Called: 25 Consulted Physician: Dr. Fernandez [facility] Hospitalist Returned Call: [phone] Additional Comments: I discussed the patients case with Dr. Fernandez [facility] Hospitalist. The patient will be further evaluated. Impression Primary Impression: Aspiration pneumonia Scribe Attestation The scribe's documentation has been prepared under my direction and personally reviewed by me in its entirety. I confirm that the note above accurately reflects all work, treatment, procedures, and medical decision making performed by me. Departure Information Dispostion Being Evaluated By Hospitalist Prescriptions No Active Prescriptions or Reported Meds Referrals Rogelio Canales M.D. (PCP) Patient Instructions My [facility]
[2016-12-24 22:07] LABS: BASO % 0.2 %; BASO ABS # 0.04 K/uL (0-0.2); COMPLETE YES; EOS % 0.7 %; HEMATOCRIT 42.6 % (37-47); IG% 0.2 %; LYMPH % 5.7 %; LYMPH ABS # 0.91 K/uL (1.2-3.4); MEAN CELL VOLUME 86.1 fL (80-100); MEAN CORPUSCULAR HEMOGLOBIN 29.1 pg (25-34); MEAN CORPUSCULAR HGB CONC 33.8 g/dl (32-36); MEAN PLATELET VOLUME 9.6 fL (7.4-10.4); MONO % 5.7 %; NEUT % 87.5 %; PLATELET COUNT 249 K/uL (130-400); RED BLOOD COUNT 4.95 M/uL (4.2-5.4)
[2016-12-24 22:29] LABS: BUN/CREATININE RATIO 14.2 (10-20); CALCIUM 8.7 mg/dl (8.5-10.1); CREATININE 0.81 mg/dl (0.60-1.20); POTASSIUM 3.5 mmol/L (3.5-5.1)
[2016-12-24] MEDS ORDERED: OPTIRAY 320 IV PRN (23:00)
--- NOTE | 2016-12-24 23:11 | DIAGNOSTIC IMAGING REPORT ---
CHEST CT WITH CONTRAST CT DOSE: 268.91 mGy.cm HISTORY: chills, mid chest pain, s/p esophageal dilation today. Give oral con. TECHNIQUE: Multiaxial CT images of the chest were performed following the intravenous administration of contrast. A dose lowering technique was utilized adhering to the principles of ALARA. COMPARISON: Abdomen and pelvis CT 07/02/2016. FINDINGS: The central airways are patent. No pleural effusions. No pneumothorax. No pneumomediastinum. Tree-in-bud and patchy groundglass airspace opacities seen within the left lung base. No fractures within the visualized osseous structures. No mediastinal or hilar lymphadenopathy. The heart is normal in size. The adrenal glands and spleen are unremarkable. Stable hypodense lesions within the right kidney and liver. Normal caliber thoracic aorta. The central pulmonary arteries are patent. There is contrast within the esophagus. No extraluminal contrast to suggest a leak. IMPRESSION: 1. No evidence for esophageal perforation. 2. Tree-in-bud and patchy groundglass airspace opacities within the left lung base. This favors a pneumonia likely due to aspiration. Electronically signed by: Oleksandr Esposito M.D. 12/24/2016 11:10 PM Dictated Date/Time: 12/24/2016 11:03 PM
[2016-12-24 23:44] LABS: URINE APPEARANCE CLEAR (CLEAR); URINE BILIRUBIN NEG (NEG); URINE COLOR YELLOW; URINE NITRITE NEG (NEG); URINE SPECIFIC GRAVITY 1.033 (1.000-1.030); UROBILINOGEN NEG (NEG); ZZUR CULT IF INDIC CLEAN CATCH NO
[2016-12-24 23:49] LABS: MANUAL MICROSCOPIC REQUIRED? NO; REVIEW REQ? NO
[2016-12-25] MEDS ORDERED: CEFTRIAXONE SOD INJ 1 GM ADDVIAL IV STA (00:18)
[2016-12-25] MEDS ORDERED: METRONIDAZOLE 500MG / 100ML NSS IV STA (00:18)
[2016-12-25] MEDS ORDERED: SODIUM CHLORIDE 0.9% 500ML 500 ML IV STA (00:27)
[2016-12-25] MEDS ORDERED: SODIUM CHLORIDE 0.9% 1000ML 1,000 ML IV STA (00:27)
[2016-12-25] MEDS ORDERED: ACETAMINOPHEN 500 MG TAB PO STA (00:27)
[2016-12-25] MEDS ORDERED: POLYETHYLENE (MIRALAX) 17 GM PACK PO PRN (00:45)
[2016-12-25] MEDS ORDERED: ACETAMINOPHEN 325 MG TAB PO PRN (00:45)
[2016-12-25] MEDS ORDERED: MAGNESIUM HYDROXIDE SUSP 30 ML UDC PO PRN (00:45)
[2016-12-25] MEDS ORDERED: ALUMINUM/MAGNESIUM/SIMETH (MAALOX MAX) 30 ML UDC PO PRN (00:45)
[2016-12-25] MEDS ORDERED: ONDANSETRON INJ 2 MG/ML 2 ML VIAL IV PRN (00:45)
[2016-12-25] MEDS ORDERED: ACETAMINOPHEN SUSP 160 MG/5 ML UDC ONE (00:55)
--- NOTE | 2016-12-25 00:59 | History and Physical ---
History & Physical Date & Time of Service: Dec 25, 2016 at 00:50 Chief Complaint: Cold Cant Get Warm,Feels Like Has To Throw Up,[place] Primary Care Physician: Rogelio Canales M.D. History of Present Illness Source: patient 51 y/o F Hx pyelonephritis, esophageal strictures. Pt underwent a dilatation procedure earlier in day. She was noted to be coughing following the procedure. She then developed nausea, vomiting and rigors. She has not c/o CP or SOB. A CT chest was obtained due to concern for perforation. Although no evidence of perforation was seen, a LLL pneumonia consistent with aspiration was confirmed. Past Medical/Surgical History 1) Esophageal strictures 2) Pyelonephritis -previous admissions with urosepsis Surgical Problems: (1) History of hysterectomy Status: Resolved Family History Depression Social History Smoking Status: Never Smoker Drug Use: none Marital Status: Housing status: lives with family Occupational Status: employed Immunizations History of Influenza Vaccine: Yes Influenza Vaccine Date: Jan 05, 2010 History of Tetanus Vaccine?: Unknown History of Pneumococcal: No History of Hepatitis B Vaccine: Unknown Multi-Drug Resistant Organisms History of MDRO: No Allergies Coded Allergies: Adhesives (Verified Allergy, Unknown, RASH, 12/24/16) Fish (Verified Allergy, Unknown, GI SYMPTOMS, 12/24/16) Penicillins (Verified Allergy, Unknown, PT HAD CHILD DOES NOT REMEMBER REACTION, 12/24/16) Home Medications No Active Prescriptions or Reported Meds Review of Systems Constitutional: + fever (Not confirmed), + chills, + sweats Eyes: No worsening of vision ENT: No hearing loss, No unusual epistaxis, No nasal symptoms Respiratory: + cough, No sputum, No wheezing, No shortness of breath Cardiovascular: No chest pain, No orthopnea, No PND Abdomen: + nausea, + vomiting, No pain, No diarrhea Musculoskeletal: No joint pain Genitourinary - Female: No dysuria, No urinary frequency, No urinary urgency Neurologic: No memory loss, No paralysis, No weakness Psychiatric: No depression symptoms Endocrine: No fatigue Hematologic / Lymphatic: No abnormal bleeding/bruising Integumentary: No rash Allergic / Immunologic: No environmental allergies Physical Exam Vital Signs Date Time Temp Pulse Resp B/P (MAP) Pulse Ox O2 Delivery O2 Flow Rate FiO2 12/24/16 22:30 118 23 121/79 94 Room Air 12/24/16 22:05 94 12/24/16 21:55 101 19 109/69 95 Room Air 12/24/16 20:38 37.1 109 20 134/91 97 Room Air General Appearance: WD/WN, no apparent distress Head: normocephalic Eyes: normal inspection, PERRL, EOMI ENT: normal ENT inspection, TMs normal Neck: supple, no JVD Respiratory/Chest: chest non-tender, lungs clear, normal breath sounds, no respiratory distress, no accessory muscle use Cardiovascular: regular rate, rhythm, no edema, no gallop Abdomen/GI: normal bowel sounds, non tender, soft Back: normal inspection, no CVA tenderness Extremities/Musculoskelatal: normal inspection, no calf tenderness, normal capillary refill, no pedal edema, normal range of motion Neurologic/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: 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 as tested, no motor/sensory deficits, alert, normal mood/affect, normal reflexes, oriented x 3 Skin: normal color, warm/dry, no rash Diagnostics Laboratory Results Results Past 24 Hours Test 12/24/16 21:51 12/24/16 23:10 Range/Units White Blood Count 16.10 4.8-10.8 K/uL Red Blood Count 4.95 4.2-5.4 M/uL Hemoglobin 14.4 12.0-16.0 g/dL Hematocrit 42.6 37-47 % Mean Corpuscular Volume 86.1 80-100 fL Mean Corpuscular Hemoglobin 29.1 25-34 pg Mean Corpuscular Hemoglobin Concent 33.8 32-36 g/dl Platelet Count 249 130-400 K/uL Mean Platelet Volume 9.6 7.4-10.4 fL Neutrophils (%) (Auto) 87.5 % Lymphocytes (%) (Auto) 5.7 % Monocytes (%) (Auto) 5.7 % Eosinophils (%) (Auto) 0.7 % Basophils (%) (Auto) 0.2 % Neutrophils # (Auto) 14.07 1.4-6.5 K/uL Lymphocytes # (Auto) 0.91 1.2-3.4 K/uL Monocytes # (Auto) 0.92 0.11-0.59 K/uL Eosinophils # (Auto) 0.12 0-0.5 K/uL Basophils # (Auto) 0.04 0-0.2 K/uL RDW Standard Deviation 40.1 36.4-46.3 fL RDW Coefficient of Variation 12.6 11.5-14.5 % Immature Granulocyte % (Auto) 0.2 % Immature Granulocyte # (Auto) 0.04 0.00-0.02 K/uL Sodium Level 140 136-145 mmol/L Potassium Level 3.5 3.5-5.1 mmol/L Chloride Level 109 98-107 mmol/L Carbon Dioxide Level 25 21-32 mmol/L Anion Gap 6.0 3-11 mmol/L Blood Urea Nitrogen 12 7-18 mg/dl Creatinine 0.81 0.60-1.20 mg/dl Est Creatinine Clear Calc Drug Dose 59.7 ml/min Estimated GFR () 98.2 Estimated GFR (Non- 84.7 BUN/Creatinine Ratio 14.2 10-20 Random Glucose 107 70-99 mg/dl Calcium Level 8.7 8.5-10.1 mg/dl Total Bilirubin 1.0 0.2-1 mg/dl Direct Bilirubin 0.2 0-0.2 mg/dl Aspartate Amino Transf (AST/SGOT) 10 15-37 U/L Alanine Aminotransferase (ALT/SGPT) 13 12-78 U/L Alkaline Phosphatase 58 45-117 U/L Total Protein 7.3 6.4-8.2 gm/dl Albumin 3.8 3.4-5.0 gm/dl Lipase 138 73-393 U/L Urine Color YELLOW Urine Appearance CLEAR CLEAR Urine pH 8.0 4.5-7.5 Urine Specific [place] 1.033 1.000-1.030 Urine Protein NEG NEG Urine Glucose (UA) NEG NEG Urine Ketones NEG NEG Urine Occult Blood TRACE NEG Urine Nitrite NEG NEG Urine Bilirubin NEG NEG Urine Urobilinogen NEG NEG Urine Leukocyte Esterase TRACE NEG Urine WBC (Auto) 1-5 0-5 /hpf Urine RBC (Auto) 0-4 0-4 /hpf Urine Hyaline Casts (Auto) 1-5 0-5 /lpf Urine Epithelial Cells (Auto) 10-20 0-5 /lpf Urine Bacteria (Auto) 4+ NEG Microbiology Results 12/24/16 Blood Culture, Received Pending 12/24/16 Blood Culture, Received Pending Diagnostic Radiology CT chest: 1. No evidence for esophageal perforation. 2. Tree-in-bud and patchy groundglass airspace opacities within the left lung Impression Assessment and Plan 51 y/o F Hx pyelonephritis, esophageal strictures. Pt underwent a dilatation procedure earlier in day. She was noted to be coughing following the procedure. She then developed nausea, vomiting and rigors. She has not c/o CP or SOB. A CT chest was obtained due to concern for perforation. Although no evidence of perforation was seen, a LLL pneumonia consistent with aspiration was confirmed. 1) Aspiration pneumonia - following esophageal stricture dilatation - placed on Ceftriaxon and Flagyl due to allergies - consider early DC with PO antibiotics if pt shows improvement overnight. 2) Esophageal stricture - placed on full liquid diet pending DC - she is not normally prone to aspiration Full code - SCDs due to AM procedure Total time for this admit including review of labs, meds, imaging - discussion with pt and ER attending - 32 min Level of Care Med/Surg Resuscitation Status FULL RESUSCITATION VTE Prophylaxis VTE Risk Assessment Done? Y/N: Yes Risk Level: Low Given or contraindicated: SCD's
[2016-12-25 01:15] VITALS: BP 128/80; PULSE 86; TEMP 36.7; O2SAT 97; Ht 149.9 cm; Wt 54.3 kg
[2016-12-25] MEDS ORDERED: ALBUT/IPRATROP 3MG/0.5MG NEB 3 ML VIAL INH PRN (01:15)
[2016-12-25] MEDS ORDERED: D5NSS + 20MEQ KCL 1,000 ML IV SCH (02:00)
[2016-12-25 06:47] LABS: BASO % 0.3 %; BASO ABS # 0.04 K/uL (0-0.2); COMPLETE YES; EOS % 0.9 %; IG% 0.3 %; LYMPH % 7.4 %; LYMPH ABS # 1.06 K/uL (1.2-3.4); MEAN CELL VOLUME 86.2 fL (80-100); MEAN CORPUSCULAR HEMOGLOBIN 29.5 pg (25-34); MEAN CORPUSCULAR HGB CONC 34.3 g/dl (32-36); MEAN PLATELET VOLUME 9.3 fL (7.4-10.4); MONO % 7.4 %; NEUT % 83.7 %; PLATELET COUNT 207 K/uL (130-400); RED BLOOD COUNT 4.64 M/uL (4.2-5.4); WHITE BLOOD COUNT 14.38 K/uL (4.8-10.8)
[2016-12-25 06:58] VITALS: BP 107/73; PULSE 83; TEMP 36.9; O2SAT 98
[2016-12-25] MEDS ORDERED: ACETAMINOPHEN SOLN 500 MG/15.62 ML UDP PO PRN (07:45)
[2016-12-25] MEDS ORDERED: GI COCKTAIL PO PRN (09:00)
[2016-12-25] MEDS ORDERED: PRLSR20 PO ×2 (09:36)
[2016-12-25] MEDS ORDERED: SUCR1TAB29 PO ×2 (09:36)
--- NOTE | 2016-12-25 09:37 | Discharge Instructions ---
Discharge Instructions Date of Service Dec 25, 2016. Admission Reason for Admission: Aspiration Pneumonia Discharge Discharge Diagnosis / Problem: chest pain after endoscopy and esophageal stretching Discharge Goals Goal(s): Diagnostic testing, Therapeutic intervention Activity Recommendations Activity Limitations: resume your previous activity . Current Hospital Diet Patient's current hospital diet: Full Liquid Diet Discharge Diet Recommended Diet: Regular Diet (soft slippery diet ) Pending Studies Studies pending at discharge: no Medical Emergencies . Who to Call and When: Medical Emergencies: If at any time you feel your situation is an emergency, please call 911 immediately. . Non-Emergent Contact Non-Emergency issues call your: Primary Care Provider, Grant Officer Call Non-Emergent contact if: temperature is above 101, your pain is worsening . . "Provider Documentation" section prepared by Lenin Coughlin. . VTE Core Measure Inpt VTE Proph given/why not?: SCD's
--- NOTE | 2016-12-25 09:50 | Gastrointestinal Consultation ---
Gastrointestinal Consultation Date of Consultation: Dec 25, 2016 Attending Physician: Dr. Coughlin Consulting Physician: Dipti Silva PA-C Reason for Consultation: Chest pain after esophageal dilatation History of Present Illness Patient is a 51 year old female who recently underwent an EGD for dysphagia on 12/24/16. During the procedure, an esophageal stricture was dilated. She reported chest pain & discomfort after the procedure and was admitted for observation. She had a CT scan with po contrast that did not indicate any type of acute abnormality. She reports decreased appetite & substernal chest discomfort that is not worsened with inspiration or eating. She denies hematemesis, melena, diarrhea, or constipation. She was not previously taking PPI therapy prior to her endoscopy. She denies family history of GI malignancy. She denies heavy NSAID use. She offers no further complaints. Past Medical/Surgical History Medical Problems: (1) Aspiration pneumonia Status: Acute (2) Blood clot in bladder Status: Acute (3) Cat bite Status: Acute (4) Cellulitis Status: Acute (5) Hematuria Status: Acute (6) Lactic acidosis Status: Acute (7) Leukocytosis Status: Acute (8) Need for prophylactic vaccination against rabies Status: Acute (9) Sepsis Status: Acute Past Medical History: Esophageal stricture, pyelonephritis Past Surgical History: EGD, hysterectomy Family History Depression Social History Smoking Status: Never Smoker Alcohol Use: none Drug Use: none Marital Status: Housing Status: lives with significant other Occupation Status: employed Allergies Coded Allergies: Adhesives (Verified Allergy, Unknown, RASH, 12/24/16) Fish (Verified Allergy, Unknown, GI SYMPTOMS, 12/24/16) Penicillins (Verified Allergy, Unknown, PT HAD CHILD DOES NOT REMEMBER REACTION, 12/24/16) Current Medications Home Meds and Scripts Medications Dose Route/Sig Max Daily Dose Days Date Category Carafate (Sucralfate) 1 Gm Tab 1 Gm PO QID 12/25/16 Rx Prilosec (Omeprazole) 20 Mg Capcr 20 Mg PO BID 12/25/16 Rx Review of Systems Constitutional: No fever, No chills Eyes: No problem reported Respiratory: No cough Cardiac: + chest pain (substernal) Abdomen: + pain (epigastric), No nausea, No vomiting, No diarrhea, No constipation, No GI bleeding, No dysphagia, No odynophagia Musculoskeletal: No joint pain Psych: No problem reported Skin: No problem reported Physical Exam Date Time Temp Pulse Resp B/P (MAP) Pulse Ox O2 Delivery O2 Flow Rate FiO2 12/25/16 08:00 Room Air 12/25/16 06:58 36.9 83 20 107/73 (84) 98 Room Air 12/25/16 01:15 36.7 86 18 128/80 97 Room Air 12/25/16 01:06 95 16 112/78 96 Room Air 12/24/16 22:30 118 23 121/79 94 Room Air 12/24/16 22:05 94 12/24/16 21:55 101 19 109/69 95 Room Air 12/24/16 20:38 37.1 109 20 134/91 97 Room Air General Appearance: WD/WN, no apparent distress Eyes: normal inspection, PERRL ENT: hearing grossly normal Respiratory/Chest: lungs clear, normal breath sounds Cardiovascular: regular rate, rhythm Abdomen: normal bowel sounds, non tender, soft Extremities: non-tender Neurologic/Psych: alert, oriented x 3 Skin: normal color Laboratory Results Last 24 Hours Test 12/24/16 21:51 12/24/16 23:10 12/25/16 06:36 White Blood Count 16.10 K/uL 14.38 K/uL Red Blood Count 4.95 M/uL 4.64 M/uL Hemoglobin 14.4 g/dL 13.7 g/dL Hematocrit 42.6 % 40.0 % Mean Corpuscular Volume 86.1 fL 86.2 fL Mean Corpuscular Hemoglobin 29.1 pg 29.5 pg Mean Corpuscular Hemoglobin Concent 33.8 g/dl 34.3 g/dl Platelet Count 249 K/uL 207 K/uL Mean Platelet Volume 9.6 fL 9.3 fL Neutrophils (%) (Auto) 87.5 % 83.7 % Lymphocytes (%) (Auto) 5.7 % 7.4 % Monocytes (%) (Auto) 5.7 % 7.4 % Eosinophils (%) (Auto) 0.7 % 0.9 % Basophils (%) (Auto) 0.2 % 0.3 % Neutrophils # (Auto) 14.07 K/uL 12.05 K/uL Lymphocytes # (Auto) 0.91 K/uL 1.06 K/uL Monocytes # (Auto) 0.92 K/uL 1.06 K/uL Eosinophils # (Auto) 0.12 K/uL 0.13 K/uL Basophils # (Auto) 0.04 K/uL 0.04 K/uL RDW Standard Deviation 40.1 fL 40.2 fL RDW Coefficient of Variation 12.6 % 12.8 % Immature Granulocyte % (Auto) 0.2 % 0.3 % Immature Granulocyte # (Auto) 0.04 K/uL 0.04 K/uL Sodium Level 140 mmol/L Potassium Level 3.5 mmol/L Chloride Level 109 mmol/L Carbon Dioxide Level 25 mmol/L Anion Gap 6.0 mmol/L Blood Urea Nitrogen 12 mg/dl Creatinine 0.81 mg/dl Est Creatinine Clear Calc Drug Dose 59.7 ml/min Estimated GFR () 98.2 Estimated GFR (Non- 84.7 BUN/Creatinine Ratio 14.2 Random Glucose 107 mg/dl Calcium Level 8.7 mg/dl Total Bilirubin 1.0 mg/dl Direct Bilirubin 0.2 mg/dl Aspartate Amino Transf (AST/SGOT) 10 U/L Alanine Aminotransferase (ALT/SGPT) 13 U/L Alkaline Phosphatase 58 U/L Total Protein 7.3 gm/dl Albumin 3.8 gm/dl Lipase 138 U/L Urine Color YELLOW Urine Appearance CLEAR Urine pH 8.0 Urine Specific [place] 1.033 Urine Protein NEG Urine Glucose (UA) NEG Urine Ketones NEG Urine Occult Blood TRACE Urine Nitrite NEG Urine Bilirubin NEG Urine Urobilinogen NEG Urine Leukocyte Esterase TRACE Urine WBC (Auto) 1-5 /hpf Urine RBC (Auto) 0-4 /hpf Urine Hyaline Casts (Auto) 1-5 /lpf Urine Epithelial Cells (Auto) 10-20 /lpf Urine Bacteria (Auto) 4+ Impression Patient is a 51 year old female with substernal chest discomfort that developed after an EGD with esophageal dilatation of a stricture. CT with contrast did not indicate any perforation. Plan 1) Protonix 40 mg daily to be given as inpatient. Plan to discharge on PPI therapy once daily. 2) Carafate 1 gm four times daily prior to meals and at bedtime. 3) Outpatient follow-up within 1-2 weeks. 4) Okay to advance diet. 5) Supportive care per primary team. Thank you for allowing us to participate in the care of this patient. If you have any further questions or concerns, do not hesitate to contact us. Agree with Dipti Hernandez, PAC as above Patient was discharged prior to my evaluation
[2016-12-25] MEDS ORDERED: METRONIDAZOLE / NSS 500 MG in PREMIXED NSS 100 ML IV SCH (10:00)
[2016-12-25] MEDS ORDERED: ACETAMINOPHEN SOLN 160 MG/5 ML BTL PO PRN (10:00)
[2016-12-25] MEDS ORDERED: ALUMINUM/MAGNESIUM SUSP 72 ML, LIDOCAINE HCL 2% VISCOUS SOLN 24 ML, BARCODE IDENTIFIER ... PO PRN ×2 (10:00)
--- NOTE | 2016-12-25 10:21 | Discharge Summary ---
Discharge Summary Date of Service Dec 25, 2016. Discharge Summary Admission Date: Dec 25, 2016 at 00:49 Discharge Date: Dec 25, 2016 Discharge Disposition: Home Principal Diagnosis: chest pain after endocsopy and dialation, possible aspiration Immunizations: Have You Had Influenza Vaccine: Yes Influenza Vaccine Date: Jan 05, 2010 History of Tetanus Vaccine?: Unknown History of Pneumococcal: No History of Hepatitis B Vaccine: Unknown Medication Reconciliation New Medications: Omeprazole (Prilosec) 20 Mg Capcr 20 MG PO BID, #60 CAP 5 Refills Sucralfate (Carafate) 1 Gm Tab 1 GM PO QID, #28 TAB Discharge Exam Review of Systems: Constitutional: No fever, No chills Cardiovascular: + chest pain, No orthopnea, No edema, No claudication Abdomen: No pain, No nausea, No diarrhea Physical Exam: General Appearance: WD/WN, + mild distress Neck: supple, no JVD Respiratory/Chest: chest non-tender, lungs clear, normal breath sounds Cardiovascular: regular rate, rhythm, no murmur Abdomen / GI: normal bowel sounds, non tender, soft Neurologic/Psychiatric: alert, oriented x 3 Hospital Course 51 F who had possible aspiration and chest pain after EGD with esophageal dilation, CT of chest suggested possible LLL pneumonitis, overnight had improved I personally spoke to Dipti Hernandez in the endoscopy unit, the patients and her mother, the pt has resolved symptoms, GI medicine does not feel we need to repeat any testing and will have pt home on prilosec and carafate, will follow up with Dr Canales Total Time Spent: Greater than 30 minutes This includes examination of the patient, discharge planning, medication reconciliation, and communication with other providers. Discharge Instructions Please refer to the electronic Patient Visit Report (Discharge Instructions) for additional information.
[2016-12-25] MEDS ORDERED: SUCRALFATE 1 GM/10 ML UDC PO SCH (12:00)
[2016-12-26] MEDS ORDERED: CEFTRIAXONE SOD INJ 1 GM in DEXTROSE 5% ADD-VANTAGE 50ML 50 ML IV SCH (01:00)
[2016-12-26] MEDS ORDERED: PANTOprazole SOD 40 MG TAB PO SCH (08:00)
== END 2016-12-25 12:56 | disposition home or self-care (01) | DRG 179 ==
LOC: C.EDB 20:35 → C.MS4W 12-25 00:49 → ENRESERV 12-25 01:00
PROVIDERS: ADMIT Internal Medicine; ATTEND Internal Medicine
DX: J69.0 Pneumonitis due to inhalation of food and vomit (principal); Z98.890 Other specified postprocedural states

== ENCOUNTER → 2016-12-24 | Day surgery (SDC) | payer BC ==
[~2016-12-24] VITALS: Ht 152.4 cm; Wt 50.0 kg
[~2016-12-24] MED LIST changes: +LIDOCAINE HCL 2% 2 ML VIAL (20MG/ML) ONE; +MIDAZOLAM HCL 1 MG/ML 2ML VIAL ONE; +PROPOFOL IV EMULSION 10 MG/ML 20 ML VIAL IV ONE; +SODIUM CHLORIDE 0.9% 500ML 500 ML IV ONE
[2016-12-24 12:48] VITALS: Ht 152.4 cm; Wt 50.0 kg
--- NOTE | 2016-12-24 13:14 | Endo History and Physical ---
History & Physical Date of Service: Dec 24, 2016. Chief Complaint: dysphagia Referring Physician: Dr. Canales History of Present Illness 51 yo CF who presents for EGD secondary to dysphagia. Past Medical History Anxiety, Hypertension, Thrombophlebitis Past Surgical History Hx Cardiac Surgery: No Hx Internal Defibrillator: No Hx Pacemaker: No Hx Abdominal Surgery: Yes (HYSTERECTOMY AND 2 C SECTIONS) Hx of Implantable Prosthesis: No Hx Post-Op Nausea and Vomiting: No Hx Cancer Surgery: No Hx Thoracic Surgery: No Hx Orthopedic: No Hx Urinary Tract Surgery: No Family History None Social History Smoking Status: Never Smoker Hx Substance Use: No Hx Alcohol Use: No Allergies Coded Allergies: Adhesives (Verified Allergy, Unknown, RASH, 12/24/16) Fish (Verified Allergy, Unknown, GI SYMPTOMS, 12/24/16) Penicillins (Verified Allergy, Unknown, PT HAD CHILD DOES NOT REMEMBER REACTION, 12/24/16) Current Medications Reported Home Medications Medications Dose Route/Sig Max Daily Dose Days Date Category No Active Prescriptions or Reported Medications Rx Vital Signs Weight (Kilograms): 50 Height (Feet): 5 Height (Inches): 0 Date Time Temp Pulse Resp B/P (MAP) Pulse Ox O2 Delivery O2 Flow Rate FiO2 12/24/16 12:55 36.6 83 18 122/64 (83) 99 Room Air Physical Exam General Appearance: WD/WN, no apparent distress Respiratory/Chest: Auscultation: breath sounds normal Cardiovascular: Heart Auscultation: RRR Abdomen: Bowel Sounds: normal Inspection & Palpation: soft, non-distended, no tenderness, guarding & rebound Assessment and Plan Assessment: 51 yo CF who presents for EGD secondary to dysphagia. Plan: Proceed with EGD.
--- NOTE | 2016-12-24 13:46 | GI REPORT ---
Procedure Date: 12/24/2016 1:00 PM Procedure: Upper GI endoscopy Indications: Dysphagia Medicines: Monitored Anesthesia Care Complications: No immediate complications. Estimated Blood Loss: Estimated blood loss: none. Procedure: Pre-Anesthesia Assessment: - Prior to the procedure, a History and Physical was performed, and patient medications and allergies were reviewed. The patient's tolerance of previous anesthesia was also reviewed. The risks and benefits of the procedure and the sedation options and risks were discussed with the patient. All questions were answered, and informed consent was obtained. Prior Anticoagulants: The patient has taken no previous anticoagulant or antiplatelet agents. ASA Grade Assessment: I - A normal, healthy patient. After reviewing the risks and benefits, the patient was deemed in satisfactory condition to undergo the procedure. After obtaining informed consent, the endoscope was passed under direct vision. Throughout the procedure, the patient's blood pressure, pulse, and oxygen saturations were monitored continuously. The scope was introduced through the mouth, and advanced to the second part of duodenum. The upper GI endoscopy was accomplished without difficulty. The patient tolerated the procedure well. Findings: One moderate benign-appearing, intrinsic stenosis was found. This measured 1.2 cm (inner diameter) x 1 cm (in length) and was traversed. A TTS dilator was passed through the scope. Dilation with a 12-13.5-15 mm balloon (to a maximum balloon size of 15 mm) dilator was performed. The dilation site was examined and showed moderate improvement in luminal narrowing. A small hiatus hernia was present. The examined duodenum was normal. Impression: - Benign-appearing esophageal stenosis. Dilated. - Small hiatus hernia. - Normal examined duodenum. - No specimens collected. Recommendation: - Resume previous diet. - Continue present medications. - Repeat the upper endoscopy PRN for retreatment. - Return to primary care physician as previously scheduled. Josep JuradoDO 12/24/2016 1:46:40 PM This report has been signed electronically. Note Initiated On: 12/24/2016 1:00 PM I attest to the content of the Intraoperative Record and orders documented therein, exceptions below
--- NOTE | 2016-12-24 13:50 | Anesthesiology Progress Note ---
Anesthesia Post Op Note Date & Time Dec 24, 2016 at 13:50 Vital Signs Pain Intensity: 0 Vital Signs Past 12 Hours Date Time Temp Pulse Resp B/P (MAP) Pulse Ox O2 Delivery O2 Flow Rate FiO2 12/24/16 13:43 76 20 101/70 (80) 99 Room Air 12/24/16 12:55 36.6 83 18 122/64 (83) 99 Room Air Notes Mental Status: alert / awake / arousable, participated in evaluation Pt Amnestic to Procedure: Yes Nausea / Vomiting: adequately controlled Pain: adequately controlled Airway Patency, RR, SpO2: stable & adequate BP & HR: stable & adequate Hydration State: stable & adequate Anesthetic Complications: no major complications apparent
--- NOTE | 2016-12-24 14:06 | Discharge Instructions ---
Endoscopy Patient Instructions Date / Procedure(s) Performed Dec 24, 2016. EGD Allergy Information Coded Allergies: Adhesives (Verified Allergy, Unknown, RASH, 12/24/16) Fish (Verified Allergy, Unknown, GI SYMPTOMS, 12/24/16) Penicillins (Verified Allergy, Unknown, PT HAD CHILD DOES NOT REMEMBER REACTION, 12/24/16) Discharge Date / Findings Dec 24, 2016. Esophageal stricture s/p dilation Hiatal hernia Medication Instructions OK to resume all medications today as prescribed Reported Home Medications Medications Dose Route/Sig Max Daily Dose Days Date Category No Active Prescriptions or Reported Medications Rx Provider Instructions Activity Restrictions - No exercising or heavy lifting for 24 hours. - Do not drink alcohol the day of the procedure. - Do not drive a car or operate machinery until the day after the procedure. - Do not make any important decisions or sign important papers in 24 hours after the procedure. Following Day: - Return to full activity which may include returning to work/school. Diet Start your diet with liquids and light foods (jello, soup, juice, toast). Then eat your usual diet if not nauseated. Treatment For Common After Affects For mild abdominal pain, bloating, or excessive gas: - Rest - Eat lightly - Lie on right side Follow-Up Information Follow-up with Dr. Canales as scheduled Anesthesia Information What You Should Know You have had a procedure that required some medicine to reduce anxiety and discomfort. This treatment is called moderate sedation. After receiving the treatment, you may be sleepy, but you will be able to breathe on your own. The effects of the treatment may last for several hours. Follow these instructions along with Activity/Diet recommendations noted above: * Do NOT do anything where dizziness or clumsiness would be dangerous. * Rest quietly at home today, then you can be up and about tomorrow. * Have a responsible person stay with you the rest of today. * You may have had an I.V. today. If so, you may take the dressing off later today. Recommendations Call your doctor if: * Trouble breathing * Continuous vomiting for more than 24 hours * Temperature above 101 degrees * Severe abdominal pain or bloating * Pain not relieved by pain medicine ordered * There is increased drainage or redness from any incision * A large amount of rectal bleeding greater than 2-3 tablespoons. (If you had a polyp/s removed or have hemorrhoids, a small amount of blood - from the rectum is to be expected.) * You have any unanswered questions or concerns. IN THE EVENT OF A SERIOUS EMERGENCY, GO TO THE NEAREST EMERGENCY ROOM Your discharge instructions were prepared by provider Josep Jurado. Patient Instructions Signature Page Nicol Parekh Patient (or Guardian) Signature/Date: I have read and understand the instructions given to me by my caregivers. Caregiver/RN/Doctor Signature/Date: The above-named patient and/or guardian has received patient instructions on this date. + Original Patient Signature Page (only) stays with chart. Please make copy for patient.
[2016-12-24 14:10] VITALS: BP 119/87; PULSE 70; O2SAT 100
== END | disposition home or self-care (01) ==
LOC: C.GI 09:59
PROVIDERS: ATTEND Internal Medicine
DX: R13.10 Dysphagia, unspecified (principal); K22.2 Esophageal obstruction; K44.9 Diaphragmatic hernia without obstruction or gangrene; I10 Essential (primary) hypertension; Z90.710 Acquired absence of both cervix and uterus; Z88.0 Allergy status to penicillin; Z88.1 Allergy status to other antibiotic agents; Z91.013 Allergy to seafood

== ENCOUNTER → 2016-12-28 | Outpatient (CLI) | payer BC ==
[~2016-12-28] MED LIST changes: -CIPR-255 PO; -DTR5 PO; +PRLSR20 PO; -PRM625 PO; +SUCR1TAB29 PO
[2016-12-28 16:46] LABS: BASO ABS # 0.08 K/uL (0-0.2); COMPLETE YES; EOS % 4.2 %; HEMATOCRIT 43.8 % (37-47); IG% 0.2 %; LYMPH % 21.1 %; LYMPH ABS # 1.73 K/uL (1.2-3.4); MEAN CELL VOLUME 87.8 fL (80-100); MEAN CORPUSCULAR HEMOGLOBIN 28.5 pg (25-34); MEAN CORPUSCULAR HGB CONC 32.4 g/dl (32-36); MEAN PLATELET VOLUME 10.1 fL (7.4-10.4); MONO % 8.2 %; NEUT % 65.3 %; PLATELET COUNT 296 K/uL (130-400); RED BLOOD COUNT 4.99 M/uL (4.2-5.4); WHITE BLOOD COUNT 8.18 K/uL (4.8-10.8)
== END | disposition home or self-care (01) ==
LOC: C.LABBFT 11:57
PROVIDERS: ATTEND Physician Assistant Medical
DX: D72.829 Elevated white blood cell count, unspecified (principal)

== ENCOUNTER → 2017-03-13 | Outpatient (CLI) | payer BC ==
[~2017-03-13] MED LIST changes: -SUCR1TAB29 PO
[2017-03-13 12:39] LABS: BASO % 0.9 %; BASO ABS # 0.08 K/uL (0-0.2); EOS ABS # 0.35 K/uL (0-0.5); HEMATOCRIT 45.9 % (37-47); HEMOGLOBIN 15.6 g/dL (12.0-16.0); IG# 0.02 K/uL (0.00-0.02); LYMPH % 22.1 %; LYMPH ABS # 1.91 K/uL (1.2-3.4); MEAN CELL VOLUME 87.8 fL (80-100); MEAN CORPUSCULAR HEMOGLOBIN 29.8 pg (25-34); MONO ABS # 0.78 K/uL (0.11-0.59); NEUT % 63.8 %; NEUT ABS # 5.52 K/uL (1.4-6.5); PLATELET COUNT 243 K/uL (130-400); RED CELL DISTRIBUTION WIDTH CV 12.7 % (11.5-14.5); RED CELL DISTRIBUTION WIDTH SD 40.5 fL (36.4-46.3); WHITE BLOOD COUNT 8.66 K/uL (4.8-10.8)
== END | disposition home or self-care (01) ==
LOC: C.LABBFT 10:48
PROVIDERS: ATTEND Internal Medicine
DX: R31.0 Gross hematuria (principal); K59.00 Constipation, unspecified; K62.5 Hemorrhage of anus and rectum

== ENCOUNTER → 2017-06-26 | Outpatient (CLI) | payer BC ==
[2017-06-26 12:51] LABS: BASO ABS # 0.06 K/uL (0-0.2); EOS % 3.9 %; EOS ABS # 0.23 K/uL (0-0.5); HEMATOCRIT 43.9 % (37-47); HEMOGLOBIN 14.6 g/dL (12.0-16.0); IG# 0.01 K/uL (0.00-0.02); LYMPH ABS # 1.35 K/uL (1.2-3.4); MEAN CELL VOLUME 87.3 fL (80-100); MEAN CORPUSCULAR HGB CONC 33.3 g/dl (32-36); MEAN PLATELET VOLUME 11.1 fL (7.4-10.4); MONO % 10.7 %; MONO ABS # 0.63 K/uL (0.11-0.59); NEUT % 61.2 %; NEUT ABS # 3.59 K/uL (1.4-6.5); PLATELET COUNT 225 K/uL (130-400); RED CELL DISTRIBUTION WIDTH SD 41.5 fL (36.4-46.3); WHITE BLOOD COUNT 5.87 K/uL (4.8-10.8)
[2017-06-26 13:29] LABS: ALBUMIN 3.9 gm/dl (3.4-5.0); ALT/SGPT 15 U/L (12-78); AST/SGOT 6 U/L (15-37); BLOOD UREA NITROGEN 10 mg/dl (7-18); CALCIUM 8.7 mg/dl (8.5-10.1); CARBON DIOXIDE 27 mmol/L (21-32); CREATININE 1.01 mg/dl (0.60-1.20); GLUCOSE 102 mg/dl (70-99); SODIUM 138 mmol/L (136-145); TOTAL PROTEIN 7.3 gm/dl (6.4-8.2)
[2017-06-26 13:30] LABS: ALKALINE PHOSPHATASE 51 U/L (45-117); CHOLESTEROL 215 mg/dl (0-200); LDL CHOLESTEROL CALCULATED 151 mg/dl
== END | disposition home or self-care (01) ==
LOC: C.LABBFT 09:46
PROVIDERS: ATTEND Nurse Practitioner
DX: E78.00 Pure hypercholesterolemia, unspecified (principal)